=== PATIENT | female | born 1940 | race Caucasian/White ===

== ENCOUNTER 2016-08-30 13:59 | Inpatient (IN) | payer MEDICARE ==
[~2016-08-30] VITALS: Ht 152.4 cm; Wt 45.9 kg
[2016-08-30] MEDS ORDERED: MORPHINE 2 MG/ML 1ML SYRINGE As Ordered ONE ×3 (15:20→20:59)
[2016-08-30] MEDS ORDERED: ONDANSETRON 4MG/2ML VIAL (J2405) As Ordered ONE ×2 (15:20→16:56)
[2016-08-30 15:38] LABS: CALCIUM LEVEL 10.2 MG/DL (8.8-10.2); CREATININE FOR GFR 1.25 MG/DL (0.55-1.02); GLOMERULAR FILTRATION RATE 44.2 (>39); POTASSIUM SERUM 4.6 MEQ/L (3.5-5.1)
[2016-08-30 15:41] LABS: BASO % 0.3 % (0.0-1.0); EOS # 0.1 K/mm3 (0.0-0.50); EOS % 1.1 % (0.0-3.0); LARGE UNSTAINED CELL # 0.1 K/mm3 (0.0-0.4); LARGE UNSTAINED CELL % 1.2 % (0.0-4.0); LYMPH # 1.5 K/mm3 (1.5-4.5); LYMPH % 13.1 % (24.0-44.0); MEAN CORPUSCULAR HEMOGLOBIN 32.1 pg (27.0-33.0); MEAN CORPUSCULAR HGB CONC 34.1 g/dl (32.0-36.5); MEAN CORPUSCULAR VOLUME 94.3 fl (80.0-96.0); MONO # 0.5 K/mm3 (0.0-0.8); MONO % 4.2 % (0.0-5.0); NEUTROPHILS # 9.4 K/mm3 (1.8-7.7); NEUTROPHILS % 80.1 % (36.0-66.0); PLATELET COUNT, AUTOMATED 180 k/mm3 (150-450); RED CELL DISTRIBUTION WIDTH 11.5 % (11.5-14.5); WHITE BLOOD COUNT 11.7 K/mm3 (4.0-10.0)
[2016-08-30 15:42] LABS: ADD MORPHOLOGY? YES
[2016-08-30 16:06] LABS: PLATELET CLUMPS SMALL AMT
--- NOTE | 2016-08-30 16:08 | REP ---
Chest one-view HISTORY: Injury Comparison: 02/14/2009 The lungs are clear. The heart is normal in size. The pulmonary vasculature is normal in appearance. Impression: No acute disease. Signed by Andrew Coleman MD 08/30/2016 03:59 P
--- NOTE | 2016-08-30 16:23 | REP ---
CT HEAD WITHOUT CONTRAST: HISTORY: Injury. Areas of decreased attentuation are present in the periventricular white matter. This represents small vessel ischemic disease. There is no intraparenchymal hemorrhage, mass, or midline shift. The ventricular system and cortical sulci are dilated consistent with minimal volume loss. There is no extracerebral collection. The visualized sinuses are clear. IMPRESSION: 1. Small vessel ischemic disease. 2. Minimal volume loss. Signed by Andrew Coleman MD 08/30/2016 04:40 P
--- NOTE | 2016-08-30 16:24 | REP ---
RIGHT HIP AND PELVIS, THREE VIEWS: HISTORY: Fall. There is a comminuted intertrochanteric fracture of the right femur. There is no dislocation. There is narrowing of the hip joint spaces. IMPRESSION: Comminuted intertrochanteric fracture of the right femur. Signed by Andrew Coleman MD 08/30/2016 04:40 P
--- NOTE | 2016-08-30 16:25 | REP ---
RIGHT FEMUR, TWO VIEWS: The comminuted intertrochanteric fracture is not seen in the present radiographs. There is no fracture of the distal two-thirds of the right femur. IMPRESSION: There is no acute fracture or dislocation. Signed by Andrew Coleman MD 08/30/2016 04:41 P
--- NOTE | 2016-08-30 16:26 | REP ---
RIGHT KNEE, TWO VIEWS: HISTORY: Injury. Limited views of the right knee demonstrate no fracture or dislocation. IMPRESSION: Limited examination demonstrating no fracture or dislocation. Signed by Andrew Coleman MD 08/30/2016 04:40 P
[2016-08-30] MEDS ORDERED: FISH1000 PO (17:19)
[2016-08-30] MEDS ORDERED: VITA100066 PO (17:19)
[2016-08-30] MEDS ORDERED: CALC600T10 PO (17:19)
[2016-08-30] MEDS ORDERED: VITA500T88 PO (17:19)
[2016-08-30] MEDS ORDERED: PANT40TA2 PO (17:19)
[2016-08-30] MEDS ORDERED: MAGN500T2 PO (17:19)
[2016-08-30] MEDS ORDERED: VITMTA PO (17:19)
[2016-08-30] MEDS ORDERED: BIOT10005 PO (17:19)
[2016-08-30 17:20] LABS: INR 0.94
--- NOTE | 2016-08-30 18:36 | CR ---
DATE OF CONSULTATION: 08/30/2016 REASON FOR CONSULTATION: Right intertrochanteric femur fracture. REQUESTING PHYSICIAN: Dr. Brandy Hagen, admitting hospitalist. HISTORY: Patient is a pleasant 75-year-old female presenting to emergency room status post mechanical fall. She sustained a right comminuted intertrochanteric fracture of her femur. Injury sustained when she tripped on her purse strap when getting out of car at gym. Patient complains of significant 9/10 right hip pain. She does have some tinging in her right lower extremity. Otherwise no concerns at this time. PAST MEDICAL HISTORY: 1. Gastroesophageal reflux disease. 2. Osteoporosis. 3. Esophagitis. 4. Diverticulitis. PAST SURGICAL HISTORY: Tonsillectomy. SOCIAL HISTORY: Patient . Lives with . She never smoked. Uses alcohol infrequently. MEDICATIONS: Pantoprazole 20 mg daily. PHYSICAL EXAMINATION: Patient is a well-nourished, well-developed female who appears to be comfortable in the exam room. HEART: Regular rate and rhythm. LUNGS: Clear to auscultation bilaterally. ABDOMEN: Soft, nontender to palpation. MUSCULOSKELETAL: Inspection of the right hip reveals no gross abnormalities. Range of motion of the hip is limited due to pain. Skin of the right leg is normal in color. Warm and dry. The calf is soft and nontender to palpation. Her distal pulses are palpable. Her capillary refill is brisk, and her sensation is intact. LABORATORY DATA: Complete blood count: WBC slightly elevated at 11.7, RBC 4.08, hemoglobin 13.1, hematocrit 38.4, platelets 180. PT 12.7, INR 0.94. Basic metabolic panel: Sodium 140, potassium 4.6, chloride 104, carbon dioxide 27, anion gap 9, BUN slightly elevated at 24, creatinine slightly elevated at 1.25, GFR 44.2, fasting glucose 101, calcium 10.2. Blood type and screen pending. IMAGING: Anterior-posterior (AP) lateral of the right hip shows a comminuted intertrochanteric fracture of the right femur. Right femur comminuted intertrochanteric fracture not seen. There is no acute fracture or dislocation. IMPRESSION: Comminuted intertrochanteric fracture of the right femur. PLAN: Patient did sustain a mechanical fall. Last oral intake was water at 1 p.m. today. Case was discussed with Dr. Geller, and recommendation was to put patient on the operating room (OR) schedule for a long trochanteric fixation nail (TFN). Patient pending admission. Dr. Geller will visit patient to discuss procedure and obtain consent. Mores than 40 minutes invested in this consultation more than 50 % face to face time at bedside. TAVARES
[2016-08-30] MEDS ORDERED: PANTOPRAZOLE 40MG TAB (PROTONIX) PO PRN (18:45)
--- NOTE | 2016-08-30 21:33 | HPE ---
DATE OF ADMISSION: 08/30/2016 PRIMARY CARE PROVIDER: Dr. Loya CHIEF COMPLAINT: Right hip pain. HISTORY OF PRESENT ILLNESS: Ms. Flores is a 75-year-old female with a past medical history of osteoporosis, gastroesophageal reflux disease (GERD), who presented to the emergency department (ED) with right hip pain that started tonight. Earlier she was at the gym working out, doing her free weights and rowing machine, and after finishing the gym she decided to go to the grocery store. As she got out of the car to go into the grocery store, her leg was caught by the strap of her gym bag, and she immediately fell on her right leg, subsequently causing significant pain. No episodes of dizziness, lightheadedness , palpitations, chest pain, shortness of breath prior to the episode. No prior injury to her legs. At baseline she is very active. Is able to go on the elliptical machine for 1 hour. Walks up and down stairs without any shortness of breath, chest pain, or palpitations. Has had surgery in the past with sedation, without any difficulty. In the ED was given morphine 2 mg times two, Zofran 4 mg times two. PAST MEDICAL HISTORY: 1. Gastroesophageal reflux disease (GERD). 2. Osteoporosis. 3. Hiatal hernia. 4. Diverticulitis. PAST SURGICAL HISTORY: 1. Tonsillectomy. 2. Toe surgery. ALLERGIES: No known drug allergies. HOME MEDICATIONS: - vitamin D 1000 units by mouth daily - fish oil 1000 mg by mouth daily - multivitamin - Protonix 40 mg by mouth as needed SOCIAL HISTORY: Patient is a never-smoker. Drinks a glass of wine once a week. No drug use. 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 Lifetime travel includes to [place] and [place]. Currently lives at home with spouse. No pets. No exposure to tuberculosis or asbestos she is aware of. FAMILY HISTORY: Extensive family history of alcoholism. REVIEW OF SYSTEMS: CONSTITUTIONAL: Denies fevers, chills, rigors, weight changes. HEENT: Denies headaches, lightheadedness, dizziness, blurry vision, difficulty with speech and swallow. CARDIOVASCULAR: Denies chest pain, paroxysmal nocturnal dyspnea, pillow orthopnea, lower extremity edema. PULMONARY: Denies shortness of breath, productive cough, hemoptysis. GASTROINTESTINAL: Denies hematochezia, melena, or hematemesis, nausea, vomiting, diarrhea, constipation. GENITOURINARY: No dysuria, frequency or hematuria. MUSCULOSKELETAL: Positive for right pain, as mentioned above. NEUROLOGICAL: No paralysis, paresthesia, headaches. ENDOCRINE: Negative for diabetes, or thyroid disease. LYMPHATICS: No lumps, bumps, or swelling anywhere in neck, axilla, or groin. HEMATOLOGY: No abnormal bleeding or bruising. PHYSICAL EXAMINATION: Blood pressure 162/84, heart rate 80, temperature 98.3, respiration rate 20, pulse oximetry 100% on room air. GENERAL: Patient was lying in bed comfortable. No acute distress. She is alert, awake, oriented times three, pleasant, cooperative. at bedside. Thin appearing. Appears younger than stated age. HEENT: Normocephalic, atraumatic. Moist oral mucosa. Mallampati 2. Extraocular movement intact. Neck supple. Trachea midline. Positive for mild thyromegaly. CHEST: Symmetric chest rise. No accessory muscle use. Breath sounds clear to auscultation bilaterally. HEART: Regular rate and rhythm. S1, S2 present. ABDOMEN: Soft, nontender, nondistended. Bowel sounds present. No guarding. No rebound. EXTREMITIES: No pedal edema. Pedal pulses present bilateral. Sensory intact. Right hip is displaced. Tender to palpation with some guarding. LABORATORY DATA: WBC 11.7, hemoglobin 13.1, hematocrit 38.4, platelets 180, neutrophil 80.1. Sodium 140, potassium 4.6, chloride 104, carbon dioxide 27, BUN 24, creatinine 1.25. Fasting glucose 101, calcium 10.2. PT 12.7, INR 0.94, PTT 26.4. Knee x-ray did not show a fracture or dislocation. Hip x-ray shows comminuted intertrochanteric fracture of right femur. CT head with small-vessel ischemic disease. Minimal volume loss. Chest x-ray: No acute disease. IMPRESSION AND PLAN: Ms. Flores is a 75-year-old female with no cardiac history, who presented to the emergency department (ED) with right leg pain, found to have fracture of right femur. 1. Comminuted intertrochanteric fracture of right femur secondary to mechanical injury. She has no cardiac history. Had anesthesia before without complications. No problems with extubation. Currently not on prednisone or beta la. She is able achieve greater than 4 metabolic equivalent (METs) and is medically optimized for surgery. Benefits of surgery will outweigh risks. Patient is currently nothing by mouth status. 2. Gastroesophageal reflux disease (GERD). Continue home dose proton pump inhibitor (PPI). 3. Osteoporosis. Cause for her current fracture. 4. Deep vein thrombosis (DVT) prophylaxis. Sequential compression devices (SCDs), thromboembolic deterrent stockings (TEDS), pharmacological intervention post surgery per orthopedic team. My preceptor for this patient encounter was Dr. Brandy Hagen. The preceptor was physically present in the building during the encounter and was fully available as needed. All aspects of the patient interview, examination, medical decision making process, and medical care plan development were reviewed and approved by the preceptor. The preceptor is aware and concurs with the plan as stated in the body of this note and will attest to such by his/her co-signature. TAVARES
--- NOTE | 2016-08-30 22:02 | ECGEPIP ---
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
--- NOTE | 2016-08-30 23:38 | EDDOCDS ---
Physician Documentation [facility] Name: Aimee Flores Age: 75 yrs Sex: Female : 1940 Arrival Date: 08/30/2016 Time: 13:59 Bed Admit Hold Private MD: Disposition: 08/30/16 17:03 Hospitalization ordered by Brandy Hagen for Inpatient Admission. Preliminary diagnosis is Intertrochanteric fracture of femur. - Bed requested for 4 [place]. - Status is Inpatient Admission. nn1 - Condition is Stable. - Problem is new. - Symptoms are unchanged. Historical: - Allergies: No known drug Allergies; - Home Meds: 1. pantoprazole 20 mg oral TbEC 1 tab once daily - PMHx: GERD; Osteoporosis; - PSHx: Tonsillectomy; - Social history: No barriers to communication noted, The patient speaks fluent [place], Speaks appropriately for age, Smoking status: Patient states was never smoker of tobacco. - Family history: Not pertinent. - : The pt / caregiver states he / she is not on anticoagulants. Home medication list is obtained from the patient. - Exposure Risk Screening:: None identified. Vital Signs: 08/30 14:37 BP 162 / 84; Pulse 80; Resp 20; Temp 98.3(TE); Pulse Ox 100% on R/A; Pain 9/10; jmb 20:14 BP 116 / 65; Pulse 81; Resp 18; Temp 98.9(O); Pulse Ox 96% on R/A; Pain 5/10; kas2 21:05 BP 136 / 66; Pulse 74; Resp 18; Pulse Ox 100% on R/A; Pain 4/10; kas2 22:25 BP 132 / 64; Pulse 65; Resp 18; Temp 98.0; Pulse Ox 99% ; Pain 2/10; kas2 22:49 BP 112 / 63; Pulse 71; Resp 18; Temp 98.1(O); Pulse Ox 100% ; Pain 2/10; kas2 MDM: 15:05 CT Head Without Contrast Ordered. EDMS 15:06 Hip,AP,LAT to include Pelvis Ordered. EDMS 15:06 Knee, Complete Ordered. EDMS 15:06 CBC with Diff Ordered. EDMS 15:06 BMP Ordered. EDMS 15:13 IV Saline Lock ordered. ml 15:14 Ondansetron 4 mg IVP once ordered. jo4 15:14 Rhythm Strip to chart ordered. jo4 15:15 morphine 2 mg IVP once ordered. jo4 15:18 Femur Ordered. EDMS 15:32 Chest, 1 View Ordered. EDMS 15:41 BMP Reviewed. jo4 15:42 CBC with Diff Reviewed. jo4 15:43 RBC MORPH PROF NO CHARGE Ordered. EDMS 15:46 CBC with Diff Reviewed. jo4 16:26 Financial registration complete. gjb 16:30 [facility] Payment Agreement was scanned into [employer] and attached to record. gjb 16:50 morphine 2 mg IVP once ordered. jo4 16:50 Ondansetron 4 mg IVP once ordered. jo4 16:51 PT/INR Ordered. EDMS 16:51 PTT Ordered. EDMS 16:51 Type & Screen Ordered. EDMS 16:55 BED REQUEST+ADM ordered. EDMS 17:55 PTT Reviewed. jo4 18:02 CBC with Diff Reviewed. jo4 18:03 ECG WITH READING ER PHYS+CARDIAG ordered. EDMS 18:35 NPO DIET ordered. EDMS 18:43 Type & Screen Reviewed. jo4 18:44 RBC MORPH PROF NO CHARGE Reviewed. jo4 18:44 PT/INR Reviewed. jo4 19:17 Admission / Observation Status ordered. EDMS 20:59 morphine 2 mg IVP once ordered. kas2 22:24 Written Provider Order was scanned into [employer] and attached to record. tmm1 Administered Medications: 15:24 Drug: Ondansetron 4 mg [ondansetron HCl 2 mg/mL intravenous solution (2 mL)] Route: b IVP; Site: right antecubital; 15:24 Drug: morphine 2 mg [morphine 2 mg/mL intravenous cartridge (1 mL)] Route: IVP; Site: b right antecubital; 17:08 Drug: morphine 2 mg [morphine 2 mg/mL intravenous cartridge (1 mL)] Route: IVP; Site: b right antecubital; 17:08 Drug: Ondansetron 4 mg [ondansetron HCl 2 mg/mL intravenous solution (2 mL)] Route: b IVP; Site: right antecubital; 20:58 CANCELLED (wrong amount ordered): morphine 1 mg IVP once kas2 21:05 Drug: morphine 2 mg [morphine 2 mg/mL intravenous cartridge (1 mL)] Route: IVP; Site: [facility] right antecubital; 22:25 Follow up: BP 132 / 64; Pulse 65 bpm; Resp 18 bpm; Temp 98.0; Pulse Ox 99% ; Pain 2/10 [facility] Adult Signatures: Dispatcher [employer] EDMS Yannick Magdaleno MD MD ml Sherrill, Hannah, RN RN hs1 McLear, Whit, ALARM ADJUSTER ALARM ADJUSTER tmm1 Kike Thakur RN RN jmb Nunez, Nikkole, RN RN nn1 Purnima Ponce Lita Rousseau DO DO jo4 Kim Grossman RN RN [facility] Dick Thomas RN RN The chart was reviewed and I authenticate all verbal orders and agree with the evaluation and treatment provided.Corrections: (The following items were deleted from the chart) 14:34 14:13 Home Meds: Omeprazole Oral once daily; hs1 liz 17:10 15:14 Watershed Manager ordered. jo4 jo4 20:58 20:58 morphine 1 mg IVP [address] [facility] Attachments: 16:30 [facility] Payment Agreement [facility] 22:24 Written Provider Order tmm1 MTDD
--- NOTE | 2016-08-30 23:38 | EDDOCDS ---
Nurse's Notes [facility] Name: Bi Flores Age: 75 yrs Sex: Female : 1940 Arrival Date: 08/30/2016 Time: 13:59 Bed Admit Hold Private MD: Diagnosis: Intertrochanteric fracture of femur Presentation: 08/30 14:08 Presenting complaint: EMS states: getting out of car and was tripped up by purse strap. hs1 Patient has osteopetrosis and deformity noted to right leg - positive rotation. Adult Sepsis Screening: The patient does not have new or worsening altered mentation. Patient's respiratory rate is less than 22. Systolic blood pressure is greater than 100. Patient has a qSOFA score of 0- Negative Sepsis Screen. Suicide/Homicide risk assessment- the patient denies having any suicidal and/or homicidal ideations and does not present with any other emotional, behavioral or mental health complaints. 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 Transition of care: patient was not received from another setting of care. Care prior to arrival: See EMS report. Medications administered prior to arrival: morphine 5 mg x2. Saline lock initiated. 14:08 Acuity: ELOY Level 3 hs1 14:08 Method Of Arrival: Ambulance hs1 Triage Assessment: 14:13 General: Appears uncomfortable, Behavior is appropriate for age, cooperative. Pain: hs1 Location: right iliac crest, right hip and right leg. Neurological: Level of Consciousness is awake, alert, obeys commands. Musculoskeletal: Range of motion limited in right hip other noted to right hip. Historical: - Allergies: No known drug Allergies; - Home Meds: 1. pantoprazole 20 mg oral TbEC 1 tab once daily - PMHx: GERD; Osteoporosis; - PSHx: Tonsillectomy; - Social history: No barriers to communication noted, The patient speaks fluent Occitan, Speaks appropriately for age, Smoking status: Patient states was never smoker of tobacco. - Family history: Not pertinent. - : The pt / caregiver states he / she is not on anticoagulants. Home medication list is obtained from the patient. - Exposure Risk Screening:: None identified. Screenin:29 Screening information is obtained from the patient. Fall risk: At risk due to jmb immobility, prior history of falls. Assistance ADL's: requires no assistance with activities of daily living. Abuse/DV Screen: The patient / caregiver reports he/she is: not in a situation that causes fear, pain or injury. Nutritional screening: No deficits noted. home support is adequate. 23:36 Advance Directives: Currently, there is no health care proxy. nn1 Assessment: 14:29 General: Appears uncomfortable, Behavior is appropriate for age, cooperative. Pain: jmb Location: right leg and pelvis and right hip and right iliac crest Pain currently is 9 out of 10 on a pain scale. Neurological: Level of Consciousness is awake, alert, obeys commands, Oriented to person, place, time, Distribution Clerk are equal bilaterally Speech is normal, Facial symmetry appears normal, Facial symmetry: tongue is midline. Cardiovascular: Capillary refill < 3 seconds Heart tones present Pulses are all present. Rhythm is regular. Respiratory: Airway is patent Respiratory effort is even, unlabored, Respiratory pattern is regular, symmetrical, Breath sounds are clear bilaterally. GI: Abdomen is non- distended Bowel sounds present X 4 quads. Abd is soft and non tender X 4 quads. Derm: Skin is pink, warm & dry. Musculoskeletal: Range of motion limited in right hip. 14:57 General: Appears in no apparent distress, Behavior is appropriate for age, cooperative, jmb Patient laying on stretcher, right leg externally rotated and uncomfortable with movement. Right leg shorter than left. NO voiced complaints at this time. . Neurological: Level of Consciousness is awake, alert, obeys commands, Oriented to person, place, time. Respiratory: Airway is patent Respiratory effort is even, unlabored, Respiratory pattern is regular, symmetrical. 16:32 General: Appears in no apparent distress, comfortable, Behavior is appropriate for age, jmb cooperative, Patient laying on stretcher, at bedside. NO voiced complaints at this time. Dr. Jones in with patient. . Neurological: Level of Consciousness is awake, alert, obeys commands, Oriented to person, place, time. Respiratory: Airway is patent Respiratory effort is even, unlabored, Respiratory pattern is regular, symmetrical. 17:09 General: Appears in no apparent distress, comfortable, Behavior is appropriate for age, jmb cooperative. Neurological: Level of Consciousness is awake, alert, obeys commands, Oriented to person, place, time. Respiratory: Airway is patent Respiratory effort is even, unlabored, Respiratory pattern is regular, symmetrical. 17:40 General: Appears in no apparent distress, comfortable, Behavior is appropriate for age, jmb cooperative, Patient laying on stretcher, appears comfortable. NO voiced complaints at this time. . Neurological: Level of Consciousness is awake, alert, obeys commands, Oriented to person, place, time. Respiratory: Airway is patent Respiratory effort is even, unlabored, Respiratory pattern is regular, symmetrical. 18:44 General: Appears in no apparent distress, comfortable, Behavior is appropriate for age, jmb cooperative, Patient laying on stretcher, at bedside. NO voiced complaints at this time. . Neurological: Level of Consciousness is awake, alert, obeys commands, Oriented to person, place, time. Respiratory: Airway is patent Respiratory effort is even, unlabored, Respiratory pattern is regular, symmetrical. 19:00 General: Verbal report given by Carlito Brar RN. Assumed care of patient at this time.. kas2 19:52 General: Appears in no apparent distress, uncomfortable, well nourished, well groomed, kas2 Behavior is appropriate for age, cooperative. Pain: Location: right leg and pelvis and right hip and right iliac crest Pain currently is 5 out of 10 on a pain scale. Neurological: Level of Consciousness is awake, alert, obeys commands, Oriented to person, place, time. Cardiovascular: Capillary refill < 3 seconds Heart tones S1 S2 present Rhythm is sinus rhythm. Respiratory: Airway is patent Respiratory effort is even, unlabored, Respiratory pattern is regular, symmetrical, Breath sounds are clear bilaterally. Derm: Skin is intact, is healthy with good turgor, Skin is dry, Skin is pink, warm & dry. Skin temperature is warm. Musculoskeletal: Circulation, motion, and sensation intact Capillary refill < 3 seconds Range of motion limited in right leg and pelvis and right hip and right iliac crest. 21:05 General: Patient laying in bed with at bedside. Patient complaining of R hip kas2 pain 4/. VSS. Meds given for pain. No distress noted. Airway patent and respiratory effort even and unlabored. Call adhikari within reach. Will continue to monitor.. 22:23 General: Appears in no apparent distress, comfortable, well nourished, well groomed, kas2 Behavior is appropriate for age, cooperative. Pain: Location: right leg and pelvis and right hip and right iliac crest Pain currently is 2 out of 10 on a pain scale. Neurological: Level of Consciousness is awake, alert, Oriented to person, place, time. Respiratory: Airway is patent Respiratory effort is even, unlabored, Respiratory pattern is regular, symmetrical. Derm: Skin is intact, Skin is dry, Skin is pink, warm & dry. Skin temperature is warm. Musculoskeletal: Circulation, motion, and sensation intact Capillary refill < 3 seconds Range of motion limited in right leg and pelvis and right hip and right iliac crest. 23:35 Reassessment: Patient appears in no apparent distress at this time. Respiratory: Airway nn1 is patent Respiratory effort is even, unlabored, Respiratory pattern is regular, symmetrical. Derm: Skin is pink, warm & dry. Vital Signs: 14:37 BP 162 / 84; Pulse 80; Resp 20; Temp 98.3(TE); Pulse Ox 100% on R/A; Pain 9/10; jmb 20:14 BP 116 / 65; Pulse 81; Resp 18; Temp 98.9(O); Pulse Ox 96% on R/A; Pain 5/10; kas2 21:05 BP 136 / 66; Pulse 74; Resp 18; Pulse Ox 100% on R/A; Pain 4/10; kas2 22:25 BP 132 / 64; Pulse 65; Resp 18; Temp 98.0; Pulse Ox 99% ; Pain 2/10; kas2 22:49 BP 112 / 63; Pulse 71; Resp 18; Temp 98.1(O); Pulse Ox 100% ; Pain 2/10; kas2 Vitals: 14:37 Log In Time N/A - ambulance arrival. [facility] ED Course: 14:00 Patient visited by Lizzie Shirley, Hat Copyist. deg 14:00 Patient moved to Waiting deg 14:02 Patient moved to [facility] 14:10 Triage Initiated hs1 14:24 [facility] jo4 14:24 Yannick Magdaleno MD is Attending Physician. jo4 14:28 Patient visited by Lita Rousseau DO. jo4 14:28 Patient visited by Lita Rousseau DO. jo4 14:29 The patient / caregiver is instructed regarding the plan of care and ED course. b 14:29 Maintain field IV. Dressing intact. Good blood return noted. Site clean & dry. Gauge & jmb site: 18 gauge left antecubital. 14:31 Patient visited by Kike Thakur RN. mary 14:58 Patient visited by Kike Thakur RN. jmb 15:19 BMP Sent. jmb 15:19 CBC with Diff Sent. jmb 16:30 [facility] Payment Agreement was scanned into [employer] and attached to record. gjb 16:33 Patient visited by Kike Thakur RN. jmb 16:35 Chest, 1 View Returned. EDMS 16:35 CT Head Without Contrast Returned. EDMS 16:35 Hip,AP,LAT to include Pelvis Returned. EDMS 16:35 Femur Returned. EDMS 16:35 Knee, Complete Returned. EDMS 17:03 Brandy Hagen is Hospitalizing Provider. jo4 17:08 Type & Screen Sent. jmb 17:08 PTT Sent. jmb 17:08 PT/INR Sent. jmb 17:09 Patient visited by Kike Thakur RN. jmb 17:40 Patient visited by Kike Thakur RN. jmb 18:02 Patient moved to Admit Hold js13 18:44 Patient visited by Kike Thakur RN. jmb 18:57 Patient visited by Betzaida Clemente PCA. ct3 18:57 Kim Grossman RN is Primary Nurse. kas2 18:57 EKG done. (by ED staff). Reviewed by Lita Rousseau DO. ct3 19:00 Patient visited by Kim Grossman RN. kas2 19:54 Patient visited by Kim Grossman RN. kas2 20:13 Patient visited by Kim Grossman RN. kas2 20:44 Patient visited by Kim Grossman RN. kas2 21:07 Patient visited by Kim Grossman RN. kas2 22:08 EKG-ADULT Returned. EDMS 22:24 Patient visited by Kim Grossman RN. kas2 22:24 Written Provider Order was scanned into [employer] and attached to record. tmm1 22:25 Patient visited by Kim Grossman RN. kas2 22:49 No procedures done that require assistance. kas2 22:55 Patient visited by Kim Grossman RN. kas2 Administered Medications: 15:24 Drug: Ondansetron 4 mg [ondansetron HCl 2 mg/mL intravenous solution (2 mL)] Route: jmb IVP; Site: right antecubital; 15:24 Drug: morphine 2 mg [morphine 2 mg/mL intravenous cartridge (1 mL)] Route: IVP; Site: b right antecubital; 17:08 Drug: morphine 2 mg [morphine 2 mg/mL intravenous cartridge (1 mL)] Route: IVP; Site: [facility] right antecubital; 17:08 Drug: Ondansetron 4 mg [ondansetron HCl 2 mg/mL intravenous solution (2 mL)] Route: jmb IVP; Site: right antecubital; 20:58 CANCELLED (wrong amount ordered): morphine 1 mg IVP once [facility] 21:05 Drug: morphine 2 mg [morphine 2 mg/mL intravenous cartridge (1 mL)] Route: IVP; Site: [facility] right antecubital; 22:25 Follow up: BP 132 / 64; Pulse 65 bpm; Resp 18 bpm; Temp 98.0; Pulse Ox 99% ; Pain 2/10 [facility] Adult Order Results: Lab Order: CBC with Diff; SPEC'M 08/30/16 15:18 Test: WHITE BLOOD COUNT; Value: 11.7; Range: 4.0-10.0; Abnormal: Above high normal; Units: K/mm3; Status: F Test: RED BLOOD COUNT; Value: 4.08; Range: 4.00-5.40; Units: M/mm3; Status: F Test: HEMOGLOBIN; Value: 13.1; Range: 12.0-16.0; Units: g/dl; Status: F Test: HEMATOCRIT; Value: 38.4; Range: 36.0-47.0; Units: %; Status: F Test: MEAN CORPUSCULAR VOLUME; Value: 94.3; Range: 80.0-96.0; Units: fl; Status: F Test: MEAN CORPUSCULAR HEMOGLOBIN; Value: 32.1; Range: 27.0-33.0; Units: pg; Status: F Test: MEAN CORPUSCULAR HGB CONC; Value: 34.1; Range: 32.0-36.5; Units: g/dl; Status: F Test: RED CELL DISTRIBUTION WIDTH; Value: 11.5; Range: 11.5-14.5; Units: %; Status: F Test: PLATELET COUNT, AUTOMATED; Value: 180; Range: 150-450; Units: k/mm3; Status: F Test: NEUTROPHILS %; Value: 80.1; Range: 36.0-66.0; Abnormal: Above high normal; Units: %; Status: F Test: LYMPH %; Value: 13.1; Range: 24.0-44.0; Abnormal: Below low normal; Units: %; Status: F Test: MONO %; Value: 4.2; Range: 0.0-5.0; Units: %; Status: F Test: EOS %; Value: 1.1; Range: 0.0-3.0; Units: %; Status: F Test: BASO %; Value: 0.3; Range: 0.0-1.0; Units: %; Status: F Test: LARGE UNSTAINED CELL %; Value: 1.2; Range: 0.0-4.0; Units: %; Status: F Test: NEUTROPHILS #; Value: 9.4; Range: 1.8-7.7; Abnormal: Above high normal; Units: K/mm3; Status: F Test: LYMPH #; Value: 1.5; Range: 1.5-4.5; Units: K/mm3; Status: F Test: MONO #; Value: 0.5; Range: 0.0-0.8; Units: K/mm3; Status: F Test: EOS #; Value: 0.1; Range: 0.0-0.50; Units: K/mm3; Status: F Test: BASO #; Value: 0.0; Range: 0.0-0.2; Units: K/mm3; Status: F Test: LARGE UNSTAINED CELL #; Value: 0.1; Range: 0.0-0.4; Units: K/mm3; Status: F Lab Order: [facility]; SPEC'M 08/30/16 15:18 Test: GLUCOSE, FASTING; Value: 101; Range: 83-110; Units: MG/DL; Status: F Test: BLOOD UREA NITROGEN; Value: 24; Range: 7-18; Abnormal: Above high normal; Units: MG/DL; Status: F Test: CREATININE FOR GFR; Value: 1.25; Range: 0.55-1.02; Abnormal: Above high normal; Units: MG/DL; Status: F Test: GLOMERULAR FILTRATION RATE; Value: 44.2; Range: >39; Status: F Test: SODIUM LEVEL; Value: 140; Range: 136-145; Units: MEQ/L; Status: F Test: POTASSIUM SERUM; Value: 4.6; Range: 3.5-5.1; Units: MEQ/L; Status: F Test: CHLORIDE LEVEL; Value: 104; Range: 98-107; Units: MEQ/L; Status: F Test: CARBON DIOXIDE LEVEL; Value: 27; Range: 21-32; Units: MEQ/L; Status: F Test: ANION GAP; Value: 9; Range: 8-16; Units: MEQ/L; Status: F Test: CALCIUM LEVEL; Value: 10.2; Range: 8.8-10.2; Units: MG/DL; Status: F Test Note: ; Units are mL/min/1.73 m2 Chronic Kidney Disease Staging per NKF: Stage I & II GFR >=60 Normal to Mildly Decreased Stage III GFR 30-59 Moderately Decreased Stage IV GFR 15-29 Severely Decreased Stage V GFR <15 Very Little GFR Left ESRD GFR <15 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 Lab Order: RBC MORPH PROF NO CHARGE; SPEC'M 08/30/16 15:18 Test: PLATELET ESTIMATE; Range: NORMAL; Status: I Test: RBC MORPHOLOGY; Value: NORMAL; Status: F Test: PLATELET CLUMPS; Value: SMALL AMT; Status: F Test: PLATELET ESTIMATE; Value: NORMAL; Range: NORMAL; Status: F Lab Order: PT/INR; SPEC'M 08/30/16 17:06 Test: PROTHROMBIN TIME; Value: 12.7; Range: 12.3-14.5; Units: SECONDS; Status: F Test: INR; Value: 0.94; Status: F Test Note: ; THERAPUTIC HUMAN INR VALUES INDICATIONS NORMAL RANGES PROPHYLAXIS/TREATMENT OF: VENOUS THROMBOSIS 2.0-3.0 PULMONARY EMBOLISM 2.0-3.0 PREVENTION OF SYSTEMIC EMBOLISM FROM: TISSUE HEART VALVES 2.0-3.0 ACUTE MYOCARDIAL INFARCTION 2.0-3.0 VALVULAR HEART DISEASE 2.0-3.0 ATRIAL FIBRILLATION 2.0-3.0 MECHANICAL VALVES(HIGH RISK) 2.5-3.5 RECURRENT MYOCARDIAL INFARCTION 2.5-3.5 Lab Order: PTT; SPEC'Olya 08/30/16 17:06 Test: PARTIAL THROMBOPLASTIN TIME; Value: 26.4; Range: 26.6-37.1; Abnormal: Below low normal; Units: SECONDS; Status: F Lab Order: Type & Screen; AGUSTIN 08/30/16 17:06 Test: BLOOD TYPE; Value: B NEG; Status: F Test: AB SCREEN (INDIRECT RADHA)GEL; Value: NEGATIVE; Status: F Radiology Order: CT Head Without Contrast Test: CT Head Without Contrast REASON FOR EXAMINATION: Mechanical fall; hit head; CT HEAD WITHOUT CONTRAST:; ; HISTORY: Injury.; ; Areas of decreased attentuation are present in the periventricular white matter.; This represents small vessel ischemic disease. There is no intraparenchymal; hemorrhage, mass, or midline shift. The ventricular system and cortical sulci are; dilated consistent with minimal volume loss. There is no extracerebral; collection. The visualized sinuses are clear.; ; IMPRESSION:; ; 1. Small vessel ischemic disease.; ; 2. Minimal volume loss.; ; ; Signed by; Andrew Coleman MD 08/30/2016 04:40 P; Radiology Order: Hip,AP,LAT to include Pelvis Test: Hip,AP,LAT to include Pelvis REASON FOR EXAMINATION: Mechanical fall; hip pain; RIGHT HIP AND PELVIS, THREE VIEWS:; ; HISTORY: Fall.; ; There is a comminuted intertrochanteric fracture of the right femur. There is no; dislocation. There is narrowing of the hip joint spaces.; ; IMPRESSION:; ; Comminuted intertrochanteric fracture of the right femur.; ; ; Signed by; Andrew Coleman MD 08/30/2016 04:40 P; Radiology Order: Knee, Complete Test: Knee, Complete REASON FOR EXAMINATION: Mechanical fall; knee pain; RIGHT KNEE, TWO VIEWS:; ; HISTORY: Injury.; ; Limited views of the right knee demonstrate no fracture or dislocation.; ; IMPRESSION:; ; Limited examination demonstrating no fracture or dislocation.; ; ; Signed by; Andrew Coleman MD 08/30/2016 04:40 P; Radiology Order: Femur Test: Femur REASON FOR EXAMINATION: Mechanical fall; hip and knee pain; RIGHT FEMUR, TWO VIEWS:; ; The comminuted intertrochanteric fracture is not seen in the present; radiographs. There is no fracture of the distal two-thirds of the right femur.; ; IMPRESSION:; ; There is no acute fracture or dislocation.; ; ; Signed by; Andrew Coleman MD 08/30/2016 04:41 P; Radiology Order: Chest, 1 View Test: Chest, 1 View REASON FOR EXAMINATION: Mechanical fall; Chest one-view; ; HISTORY: Injury; ; Comparison: 02/14/2009; ; The lungs are clear. The heart is normal in size. The pulmonary vasculature is; normal in appearance.; ; Impression: No acute disease.; ; ; Signed by; Andrew Coleman MD 08/30/2016 03:59 P; Radiology Order: EKG-ADULT Test: EKG-ADULT REASON FOR EXAMINATION: Mechanical fall; Stationary ECG Study; [facility] - ED; ; Test Date: 2016-08-30; Pat Name: BI FLORES Department:; Room: -; Gender: F Stoner Hand: ct; : 1940 Requested By: LITA DIXON; Order Number: [id number] Reading MD: Wilfrido Wade; Measurements; Intervals [place]; Rate: 75 P: 6; DC: 156 QRS: 10; QRSD: 88 T: 7; QT: 398; QTc: 446; Interpretive Statements; SINUS RHYTHM; ; Electronically Signed On 08-30-2016 22:02:33 EST by Wilfrido Wade; Outcome: 17:03 Decision to Hospitalize by Provider. jo4 22:47 Discharge Assessment: patient administered narcotics - yes. Patient was admitted to the [address] or transferred to another facility. The following High Risk Discharge criteria are identified: None. Admitted to Med/Surg accompanied by tech, via stretcher, with chart. Condition: good Condition: stable Condition: improved. CT Study completed. Property :Personal belongings accompany Pt. 23:37 Patient left the ED. nn1 Signatures: Dispatcher [employer] EDMS Shelly Orosco, RN RN Lizzie Wheeler, Hat Copyist Unit deg Thelma Sheriff RN RN hs1 Betzaida Clemente, INTERLOCKER INTERLOCKER ct3 Pricilla LeoRN RN js13 McLear, Whit, INTERLOCKER INTERLOCKER tmm1 Kike Thakur,CARYN RN jmb Alan Taylor RN RN nn1 Purnima Ponce Jane, DO DO jo4 Smith, Kim, RN RN kas2 Corrections: (The following items were deleted from the chart) 14:34 14:13 Home Meds: Omeprazole Oral once daily; hs1 mary MTDD
[2016-08-31] MEDS: NS 1,000 ML IV SCH ×2 (01:02→13:15)
[2016-08-31] MEDS: MORPHINE 2 MG/ML 1ML SYRINGE IV PRN ×4 (01:04→15:03)
[2016-08-31 06:00] VITALS: BP 107/58
[2016-08-31 07:27] LABS: RED CELL DISTRIBUTION WIDTH 11.7 % (11.5-14.5)
[2016-08-31 08:03] LABS: CALCIUM LEVEL 8.4 MG/DL (8.8-10.2); CREATININE FOR GFR 1.17 MG/DL (0.55-1.02); GLOMERULAR FILTRATION RATE 47.7 (>39)
[2016-08-31] MEDS ORDERED: VITAMIN D 1,000 INTERNATIONAL UNITS TABLET PO SCH (09:00)
[2016-08-31] MEDS ORDERED: SENOKOT S TAB PO SCH (09:00)
--- NOTE | 2016-08-31 09:52 | IPN ---
DATE OF SERVICE: 08/31/2016 A 75-year-old female seen at bedside. Resting comfortably. She denies any chest pain, nausea, or vomiting. No shortness of breath. She does, however, state that she is hungry, so she is nothing by mouth, anticipating surgery later this afternoon. She does have intravenous (IV) fluid normal saline running at 75 mL an hour, and she is making good urine. OBJECTIVE Temperature is 98.1, pulse 87, respiratory rate is 19, blood pressure (BP) 107/58, SpO2 is 96% on room air. Urine output since midnight is 500 mL. General: The patient appears to be in no acute distress. HEENT: Unremarkable. Lungs: Clear. Heart: Regular rate and rhythm. Abdomen: Soft. Extremities: The right lower extremity is shortened and externally rotated. Otherwise, pulses are equal. Sensation is intact. LABORATORIES: White count is 10, hemoglobin 11.1, platelets 174,000. Sodium 142, potassium 4.0, chloride 107, bicarbonate 25, anion gap 10, BUN 21, creatinine 1.17, glucose is 98. INR is 0.94. ASSESSMENT AND PLAN: 1. Comminuted intratrochanteric fracture of the right femur secondary to mechanical fall. She has been medically optimized for surgery. She continues nothing by mouth. Anticipate surgery to be later this afternoon. Pain control, anticoagulation, and physical therapy will be at the discretion of orthopedics. 2. Gastroesophageal reflux disease (GERD). Continue with proton pump inhibitor (PPI). 3. Osteoporosis. Continue with vitamin D supplementation. She may need to be considered for bisphosphonate. 4. History of diverticulosis. No current issues. 5. Deep venous thrombosis (DVT) prophylaxis. Currently, with thromboembolic deterrents (TEDs) and sequential compression devices (SCDs). Will be further modified per orthopedics. DISPOSITION: Anticipate her to be here greater than two midnights and will need some further rehabilitation services.
[2016-08-31 14:00] VITALS: BP 128/63
[2016-08-31] MEDS ORDERED: ceFAZolin 1GM INJ (J0690) As Ordered ONE (14:46)
[2016-08-31] MEDS ORDERED: BUPIVACAINE HCL 0.25% 30 ML VIAL As Ordered ONE (14:46)
[2016-08-31] MEDS ORDERED: MORPHINE 2 MG/ML 1ML SYRINGE IV ONE (16:00)
[2016-08-31] MEDS ORDERED: ceFAZolin 2 GM/D5W 50 ML IV BAG (J0690) As Ordered ONE (18:05)
[2016-08-31] MEDS ORDERED: KETAMINE HCL 200 MG/20 ML VIAL As Ordered ONE (18:12)
[2016-08-31] MEDS ORDERED: fentaNYL 100 MCG/2 ML INJECTION (J3010) As Ordered ONE ×2 (18:12→22:10)
[2016-08-31] MEDS ORDERED: MIDAZOLAM INJ 2 MG/2 ML VIAL (J2250) As Ordered ONE (18:12)
[2016-08-31] MEDS ORDERED: BUPIVACAINE/EPIN 0.25% 30 ML VIAL As Ordered ONE (18:22)
[2016-08-31] MEDS ORDERED: LIDOCAINE 2% INJ 100 MG/5 ML SDV (FOR ANES.) As Ordered ONE (18:25)
[2016-08-31] MEDS ORDERED: PROPOFOL 200 MG/20 ML VIAL As Ordered ONE ×2 (18:25)
[2016-08-31] MEDS: BUPIVACAINE/EPIN 0.5% 30 ML VIAL XX ONE ×2 (18:49→18:53)
[2016-08-31] MEDS ORDERED: ceFAZolin 1GM INJ (J0690) IR ONE (18:54)
[2016-08-31] MEDS ORDERED: PHENYLEPHRINE INJ 10MG/ML VIAL (J2370) As Ordered ONE (19:54)
[2016-08-31] MEDS ORDERED: PHENYLephrine HCL 500 MCG/5 ML (100MCG/ML) SYRINGE (J2370) As Ordered ONE ×2 (19:54)
[2016-08-31] MEDS: SENOKOT S TAB PO SCH (21:00)
[2016-08-31] MEDS ORDERED: ONDANSETRON 4MG/2ML VIAL (J2405) As Ordered ONE (21:08)
[2016-08-31] MEDS ORDERED: ONDANSETRON 4MG/2ML VIAL (J2405) IV PRN (21:45)
[2016-08-31] MEDS ORDERED: METOCLOPRAMIDE INJ 10MG/2ML VIAL (J2765) IV PRN (21:45)
[2016-08-31] MEDS ORDERED: fentaNYL 100 MCG/2 ML INJECTION (J3010) IV PRN (21:45)
[2016-08-31] MEDS ORDERED: LR 1,000 ML IV SCH (21:45)
[2016-08-31] MEDS ORDERED: METOCLOPRAMIDE INJ 10MG/2ML VIAL (J2765) As Ordered ONE (21:46)
[2016-08-31] MEDS ORDERED: PROMETHAZINE INJ 25 MG/ML VIAL (J2550) IV PRN (22:15)
[2016-08-31] MEDS ORDERED: PERCOCET 5MG/325MG TAB PO PRN ×2 (22:15)
[2016-08-31] MEDS ORDERED: HYDROmorphone HCL 1 MG/ML SYRINGE (J1170) IV PRN ×2 (22:30)
[2016-08-31] MEDS ORDERED: WARFARIN SOD 2.5 MG TAB PO ONE (23:00)
[2016-08-31 23:11] VITALS: BP 109/54
[2016-09-01] MEDS: DOCUSATE SODIUM 100 MG CAP PO SCH ×2 (00:22→08:35)
[2016-09-01] MEDS ORDERED: PANTOPRAZOLE 40MG TAB (PROTONIX) PO PRN (01:00)
[2016-09-01] MEDS: ceFAZolin SOD 1 GM in D5W MINI-BAG PLUS 50 ML IV SCH ×2 (01:58→08:35)
[2016-09-01 06:13] VITALS: BP 127/61
[2016-09-01 07:25] LABS: INR 1.24
[2016-09-01 07:28] LABS: MEAN CORPUSCULAR HEMOGLOBIN 32.4 pg (27.0-33.0); MEAN CORPUSCULAR HGB CONC 34.2 g/dl (32.0-36.5); MEAN CORPUSCULAR VOLUME 94.7 fl (80.0-96.0); RED CELL DISTRIBUTION WIDTH 11.6 % (11.5-14.5); WHITE BLOOD COUNT 10.5 K/mm3 (4.0-10.0)
[2016-09-01 07:43] LABS: ANION GAP 10 MEQ/L (8-16); BLOOD UREA NITROGEN 14 MG/DL (7-18); CALCIUM LEVEL 7.4 MG/DL (8.8-10.2); CARBON DIOXIDE LEVEL 24 MEQ/L (21-32); CHLORIDE LEVEL 107 MEQ/L (98-107); CREATININE FOR GFR 0.87 MG/DL (0.55-1.02); GLOMERULAR FILTRATION RATE > 60.0 (>39); GLUCOSE, FASTING 94 MG/DL (83-110); POTASSIUM SERUM 3.8 MEQ/L (3.5-5.1); SODIUM LEVEL 141 MEQ/L (136-145)
--- NOTE | 2016-09-01 08:27 | REP ---
RIGHT FEMUR: Partial study. Three views. HISTORY: Fracture fixation. 3 minutes and 34 seconds of fluoroscopy time is reported. FINDINGS: A sequence of three fluoroscopically obtained intraoperative spot films of the proximal distal femur document femoral neck screw and intramedullary oli fixation of the subtrochanteric femur fracture. Signed by Chetan Coronado MD 09/01/2016 09:40 A
[2016-09-01] MEDS: SENOKOT S TAB PO SCH (08:36)
[2016-09-01] MEDS ORDERED: VITAMIN D 1,000 INTERNATIONAL UNITS TABLET PO SCH (09:00)
[2016-09-01] MEDS ORDERED: MIRALAX *UNIT DOSE* 17GM PACKET PO SCH (09:00)
[2016-09-01 14:00] VITALS: BP 103/52
[2016-09-01] MEDS ORDERED: COUM1TAB17 PO (15:32)
[2016-09-01] MEDS ORDERED: COLA100C PO (15:32)
[2016-09-01] MEDS ORDERED: PERCOCET PO (15:32)
[2016-09-01] MEDS ORDERED: WARFARIN SOD 5 MG TAB PO ONE (17:00)
--- NOTE | 2016-09-02 00:39 | EDDOCDS ---
Physician Documentation [facility] Name: Aimee Flores Age: 75 yrs Sex: Female : 1940 Arrival Date: 08/30/2016 Time: 13:59 Bed Admit Hold Private MD: Disposition: 08/30/16 17:03 Hospitalization ordered by Brandy Hagen for Inpatient Admission. Preliminary diagnosis is Intertrochanteric fracture of femur. - Bed requested for 4 Lynn. - Status is Inpatient Admission. nn1 - Condition is Stable. - Problem is new. - Symptoms are unchanged. Historical: - Allergies: No known drug Allergies; - Home Meds: 1. pantoprazole 20 mg oral TbEC 1 tab once daily - PMHx: GERD; Osteoporosis; - PSHx: Tonsillectomy; - Social history: No barriers to communication noted, The patient speaks fluent [place], Speaks appropriately for age, Smoking status: Patient states was never smoker of tobacco. - Family history: Not pertinent. - : The pt / caregiver states he / she is not on anticoagulants. Home medication list is obtained from the patient. - Exposure Risk Screening:: None identified. Vital Signs: 08/30 14:37 BP 162 / 84; Pulse 80; Resp 20; Temp 98.3(TE); Pulse Ox 100% on R/A; Pain 9/10; jmb 20:14 BP 116 / 65; Pulse 81; Resp 18; Temp 98.9(O); Pulse Ox 96% on R/A; Pain 5/10; kas2 21:05 BP 136 / 66; Pulse 74; Resp 18; Pulse Ox 100% on R/A; Pain 4/10; kas2 22:25 BP 132 / 64; Pulse 65; Resp 18; Temp 98.0; Pulse Ox 99% ; Pain 2/10; kas2 22:49 BP 112 / 63; Pulse 71; Resp 18; Temp 98.1(O); Pulse Ox 100% ; Pain 2/10; kas2 MDM: 15:05 CT Head Without Contrast Ordered. EDMS 15:06 Hip,AP,LAT to include Pelvis Ordered. EDMS 15:06 Knee, Complete Ordered. EDMS 15:06 CBC with Diff Ordered. EDMS 15:06 BMP Ordered. EDMS 15:13 IV Saline Lock ordered. ml 15:14 Ondansetron 4 mg IVP once ordered. jo4 15:14 Rhythm Strip to chart ordered. jo4 15:15 morphine 2 mg IVP once ordered. jo4 15:18 Femur Ordered. EDMS 15:32 Chest, 1 View Ordered. EDMS 15:41 BMP Reviewed. jo4 15:42 CBC with Diff Reviewed. jo4 15:43 RBC MORPH PROF NO CHARGE Ordered. EDMS 15:46 CBC with Diff Reviewed. jo4 16:26 Financial registration complete. gjb 16:30 [facility] Payment Agreement was scanned into GBooking and attached to record. gjb 16:50 morphine 2 mg IVP once ordered. jo4 16:50 Ondansetron 4 mg IVP once ordered. jo4 16:51 PT/INR Ordered. EDMS 16:51 PTT Ordered. EDMS 16:51 Type & Screen Ordered. EDMS 16:55 BED REQUEST+ADM ordered. EDMS 17:55 PTT Reviewed. jo4 18:02 CBC with Diff Reviewed. jo4 18:03 ECG WITH READING ER PHYS+CARDIAG ordered. EDMS 18:35 NPO DIET ordered. EDMS 18:43 Type & Screen Reviewed. jo4 18:44 RBC MORPH PROF NO CHARGE Reviewed. jo4 18:44 PT/INR Reviewed. jo4 19:17 Admission / Observation Status ordered. EDMS 20:59 morphine 2 mg IVP once ordered. kas2 22:24 Written Provider Order was scanned into GBook[employer] and attached to record. tm 08/31 09:58 T-Sheet-- Draft Copy was scanned into GBooking and attached to record. gb 09:58 ECG/EKG was scanned into GBook[employer] and attached to record. gb 09:59 Rhythm Strip was scanned into GBook[employer] and attached to record. gb Administered Medications: 08/30 15:24 Drug: Ondansetron 4 mg [ondansetron HCl 2 mg/mL intravenous solution (2 mL)] Route: b IVP; Site: right antecubital; 15:24 Drug: morphine 2 mg [morphine 2 mg/mL intravenous cartridge (1 mL)] Route: IVP; Site: b right antecubital; 17:08 Drug: morphine 2 mg [morphine 2 mg/mL intravenous cartridge (1 mL)] Route: IVP; Site: b right antecubital; 17:08 Drug: Ondansetron 4 mg [ondansetron HCl 2 mg/mL intravenous solution (2 mL)] Route: jmb IVP; Site: right antecubital; 20:58 CANCELLED (wrong amount ordered): morphine 1 mg IVP once [facility] 21:05 Drug: morphine 2 mg [morphine 2 mg/mL intravenous cartridge (1 mL)] Route: IVP; Site: [facility] right antecubital; 22:25 Follow up: BP 132 / 64; Pulse 65 bpm; Resp 18 bpm; Temp 98.0; Pulse Ox 99% ; Pain 2/10 [facility] Adult Signatures: Dispatcher [employer] [facility] MD ml Annabel Akhtar, Reg Reg gb Thelma Sheriff RN RN hs1 Whit Simon, DRY TRANSFER WORKER DRY TRANSFER WORKER tmm1 Kike Thakur RN RN jmb Nunez, NikkoleRN RN nn1 Purnima Ponce Jane, DO jo4 Kim Grossman RN RN [facility] Dick Thomas RN RN The chart was reviewed and I authenticate all verbal orders and agree with the evaluation and treatment provided.Corrections: (The following items were deleted from the chart) 14:34 14:13 Home Meds: Omeprazole Oral once daily; hs1 mary 17:10 15:14 Margin Analyst ordered. danilo carrasco 20:58 20:58 morphine 1 mg IVP once ordered. [place] [id number] Attachments: 16:30 [facility] Payment Agreement [facility] 22:24 Written Provider Order [email or web address] 08/31 09:58 T-Sheet-- Draft Copy 09:58 ECG/EKG Chart Complete MTDD
--- NOTE | 2016-09-02 00:39 | EDDOCDS ---
Nurse's Notes [facility] Name: Bi Flores Age: 75 yrs Sex: Female : 1940 Arrival Date: 08/30/2016 Time: 13:59 Bed Admit Hold Private MD: Diagnosis: Intertrochanteric fracture of femur Presentation: 08/30 14:08 Presenting complaint: EMS states: getting out of car and was tripped up by purse strap. hs1 Patient has osteopetrosis and deformity noted to right leg - positive rotation. Adult Sepsis Screening: The patient does not have new or worsening altered mentation. Patient's respiratory rate is less than 22. Systolic blood pressure is greater than 100. Patient has a qSOFA score of 0- Negative Sepsis Screen. Suicide/Homicide risk assessment- the patient denies having any suicidal and/or homicidal ideations and does not present with any other emotional, behavioral or mental health complaints. Status: Patient is not a electric refrigerator servicer or dependent. Transition of care: patient was not received from another setting of care. Care prior to arrival: See EMS report. Medications administered prior to arrival: morphine 5 mg x2. Saline lock initiated. 14:08 Acuity: ELOY Level 3 hs1 14:08 Method Of Arrival: Ambulance hs1 Triage Assessment: 14:13 General: Appears uncomfortable, Behavior is appropriate for age, cooperative. Pain: hs1 Location: right iliac crest, right hip and right leg. Neurological: Level of Consciousness is awake, alert, obeys commands. Musculoskeletal: Range of motion limited in right hip other noted to right hip. Historical: - Allergies: No known drug Allergies; - Home Meds: 1. pantoprazole 20 mg oral TbEC 1 tab once daily - PMHx: GERD; Osteoporosis; - PSHx: Tonsillectomy; - Social history: No barriers to communication noted, The patient speaks fluent Luxembourger, Speaks appropriately for age, Smoking status: Patient states was never smoker of tobacco. - Family history: Not pertinent. - : The pt / caregiver states he / she is not on anticoagulants. Home medication list is obtained from the patient. - Exposure Risk Screening:: None identified. Screenin:29 Screening information is obtained from the patient. Fall risk: At risk due to jmb immobility, prior history of falls. Assistance ADL's: requires no assistance with activities of daily living. Abuse/DV Screen: The patient / caregiver reports he/she is: not in a situation that causes fear, pain or injury. Nutritional screening: No deficits noted. home support is adequate. 23:36 Advance Directives: Currently, there is no health care proxy. nn1 Assessment: 14:29 General: Appears uncomfortable, Behavior is appropriate for age, cooperative. Pain: jmb Location: right leg and pelvis and right hip and right iliac crest Pain currently is 9 out of 10 on a pain scale. Neurological: Level of Consciousness is awake, alert, obeys commands, Oriented to person, place, time, Crisis Intervention Specialist are equal bilaterally Speech is normal, Facial symmetry appears normal, Facial symmetry: tongue is midline. Cardiovascular: Capillary refill < 3 seconds Heart tones present Pulses are all present. Rhythm is regular. Respiratory: Airway is patent Respiratory effort is even, unlabored, Respiratory pattern is regular, symmetrical, Breath sounds are clear bilaterally. GI: Abdomen is non- distended Bowel sounds present X 4 quads. Abd is soft and non tender X 4 quads. Derm: Skin is pink, warm & dry. Musculoskeletal: Range of motion limited in right hip. 14:57 General: Appears in no apparent distress, Behavior is appropriate for age, cooperative, jmb Patient laying on stretcher, right leg externally rotated and uncomfortable with movement. Right leg shorter than left. NO voiced complaints at this time. . Neurological: Level of Consciousness is awake, alert, obeys commands, Oriented to person, place, time. Respiratory: Airway is patent Respiratory effort is even, unlabored, Respiratory pattern is regular, symmetrical. 16:32 General: Appears in no apparent distress, comfortable, Behavior is appropriate for age, jmb cooperative, Patient laying on stretcher, at bedside. NO voiced complaints at this time. Dr. Jones in with patient. . Neurological: Level of Consciousness is awake, alert, obeys commands, Oriented to person, place, time. Respiratory: Airway is patent Respiratory effort is even, unlabored, Respiratory pattern is regular, symmetrical. 17:09 General: Appears in no apparent distress, comfortable, Behavior is appropriate for age, jmb cooperative. Neurological: Level of Consciousness is awake, alert, obeys commands, Oriented to person, place, time. Respiratory: Airway is patent Respiratory effort is even, unlabored, Respiratory pattern is regular, symmetrical. 17:40 General: Appears in no apparent distress, comfortable, Behavior is appropriate for age, jmb cooperative, Patient laying on stretcher, appears comfortable. NO voiced complaints at this time. . Neurological: Level of Consciousness is awake, alert, obeys commands, Oriented to person, place, time. Respiratory: Airway is patent Respiratory effort is even, unlabored, Respiratory pattern is regular, symmetrical. 18:44 General: Appears in no apparent distress, comfortable, Behavior is appropriate for age, jmb cooperative, Patient laying on stretcher, at bedside. NO voiced complaints at this time. . Neurological: Level of Consciousness is awake, alert, obeys commands, Oriented to person, place, time. Respiratory: Airway is patent Respiratory effort is even, unlabored, Respiratory pattern is regular, symmetrical. 19:00 General: Verbal report given by Carlito Brar RN. Assumed care of patient at this time.. kas2 19:52 General: Appears in no apparent distress, uncomfortable, well nourished, well groomed, kas2 Behavior is appropriate for age, cooperative. Pain: Location: right leg and pelvis and right hip and right iliac crest Pain currently is 5 out of 10 on a pain scale. Neurological: Level of Consciousness is awake, alert, obeys commands, Oriented to person, place, time. Cardiovascular: Capillary refill < 3 seconds Heart tones S1 S2 present Rhythm is sinus rhythm. Respiratory: Airway is patent Respiratory effort is even, unlabored, Respiratory pattern is regular, symmetrical, Breath sounds are clear bilaterally. Derm: Skin is intact, is healthy with good turgor, Skin is dry, Skin is pink, warm & dry. Skin temperature is warm. Musculoskeletal: Circulation, motion, and sensation intact Capillary refill < 3 seconds Range of motion limited in right leg and pelvis and right hip and right iliac crest. 21:05 General: Patient laying in bed with at bedside. Patient complaining of R hip kas2 pain 4/. VSS. Meds given for pain. No distress noted. Airway patent and respiratory effort even and unlabored. Call adhikari within reach. Will continue to monitor.. 22:23 General: Appears in no apparent distress, comfortable, well nourished, well groomed, kas2 Behavior is appropriate for age, cooperative. Pain: Location: right leg and pelvis and right hip and right iliac crest Pain currently is 2 out of 10 on a pain scale. Neurological: Level of Consciousness is awake, alert, Oriented to person, place, time. Respiratory: Airway is patent Respiratory effort is even, unlabored, Respiratory pattern is regular, symmetrical. Derm: Skin is intact, Skin is dry, Skin is pink, warm & dry. Skin temperature is warm. Musculoskeletal: Circulation, motion, and sensation intact Capillary refill < 3 seconds Range of motion limited in right leg and pelvis and right hip and right iliac crest. 23:35 Reassessment: Patient appears in no apparent distress at this time. Respiratory: Airway nn1 is patent Respiratory effort is even, unlabored, Respiratory pattern is regular, symmetrical. Derm: Skin is pink, warm & dry. Vital Signs: 14:37 BP 162 / 84; Pulse 80; Resp 20; Temp 98.3(TE); Pulse Ox 100% on R/A; Pain 9/10; jmb 20:14 BP 116 / 65; Pulse 81; Resp 18; Temp 98.9(O); Pulse Ox 96% on R/A; Pain 5/10; kas2 21:05 BP 136 / 66; Pulse 74; Resp 18; Pulse Ox 100% on R/A; Pain 4/10; kas2 22:25 BP 132 / 64; Pulse 65; Resp 18; Temp 98.0; Pulse Ox 99% ; Pain 2/10; kas2 22:49 BP 112 / 63; Pulse 71; Resp 18; Temp 98.1(O); Pulse Ox 100% ; Pain 2/10; kas2 Vitals: 14:37 Log In Time N/A - ambulance arrival. [facility] ED Course: 14:00 Patient visited by Lizzie Shirley, Jute Bag Sewer. deg 14:00 Patient moved to Waiting deg 14:02 Patient moved to 19 [facility] 14:10 Triage Initiated hs1 14:24 [facility] jo4 14:24 Yannick Magdaleno MD is Attending Physician. jo4 14:28 Patient visited by Lita Rousseau DO. jo4 14:28 Patient visited by Lita Rousseau DO. jo4 14:29 The patient / caregiver is instructed regarding the plan of care and ED course. b 14:29 Maintain field IV. Dressing intact. Good blood return noted. Site clean & dry. Gauge & jmb site: 18 gauge left antecubital. 14:31 Patient visited by Kike Thakur RN. jmb 14:58 Patient visited by Kike Thakur RN. jmb 15:19 BMP Sent. jmb 15:19 CBC with Diff Sent. jmb 16:30 [facility] Payment Agreement was scanned into [employer] and attached to record. gjb 16:33 Patient visited by Kike Thakur RN. jmb 16:35 Chest, 1 View Returned. EDMS 16:35 CT Head Without Contrast Returned. EDMS 16:35 Hip,AP,LAT to include Pelvis Returned. EDMS 16:35 Femur Returned. EDMS 16:35 Knee, Complete Returned. EDMS 17:03 Brandy Hagen is Hospitalizing Provider. jo4 17:08 Type & Screen Sent. jmb 17:08 PTT Sent. jmb 17:08 PT/INR Sent. jmb 17:09 Patient visited by Kike Thakur RN. jmb 17:40 Patient visited by Kike Thakur RN. jmb 18:02 Patient moved to Admit Hold js13 18:44 Patient visited by Kike Thakur RN. jmb 18:57 Patient visited by Betzaida Clemente PCA. ct3 18:57 Kim Grossman RN is Primary Nurse. kas2 18:57 EKG done. (by ED staff). Reviewed by Lita Rousseau DO. ct3 19:00 Patient visited by Kim Grossman RN. kas2 19:54 Patient visited by Kim Grossman RN. kas2 20:13 Patient visited by Kim Grossman RN. kas2 20:44 Patient visited by Kim Grossman RN. kas2 21:07 Patient visited by Kim Grossman RN. kas2 22:08 EKG-ADULT Returned. EDMS 22:24 Patient visited by Kim Grossman RN. kas2 22:24 Written Provider Order was scanned into [employer] and attached to record. tmm1 22:25 Patient visited by Kim Grossman RN. kas2 22:49 No procedures done that require assistance. kas2 22:55 Patient visited by Kim Grossman RN. kas2 08/31 09:58 T-Sheet-- Draft Copy was scanned into [employer] and attached to record. gb 09:58 ECG/EKG was scanned into [employer] and attached to record. gb 09:59 Rhythm Strip was scanned into [employer] and attached to record. gb Administered Medications: 08/30 15:24 Drug: Ondansetron 4 mg [ondansetron HCl 2 mg/mL intravenous solution (2 mL)] Route: b IVP; Site: right antecubital; 15:24 Drug: morphine 2 mg [morphine 2 mg/mL intravenous cartridge (1 mL)] Route: IVP; Site: b right antecubital; 17:08 Drug: morphine 2 mg [morphine 2 mg/mL intravenous cartridge (1 mL)] Route: IVP; Site: [facility] right antecubital; 17:08 Drug: Ondansetron 4 mg [ondansetron HCl 2 mg/mL intravenous solution (2 mL)] Route: b IVP; Site: right antecubital; 20:58 CANCELLED (wrong amount ordered): morphine 1 mg IVP once [facility] 21:05 Drug: morphine 2 mg [morphine 2 mg/mL intravenous cartridge (1 mL)] Route: IVP; Site: [facility] right antecubital; 22:25 Follow up: BP 132 / 64; Pulse 65 bpm; Resp 18 bpm; Temp 98.0; Pulse Ox 99% ; Pain 2/10 [facility] Adult Attachments: 09:59 Rhythm Strip Order Results: Lab Order: CBC with Diff; SPEC'M 08/30/16 15:18 Test: WHITE BLOOD COUNT; Value: 11.7; Range: 4.0-10.0; Abnormal: Above high normal; Units: K/mm3; Status: F Test: RED BLOOD COUNT; Value: 4.08; Range: 4.00-5.40; Units: M/mm3; Status: F Test: HEMOGLOBIN; Value: 13.1; Range: 12.0-16.0; Units: g/dl; Status: F Test: HEMATOCRIT; Value: 38.4; Range: 36.0-47.0; Units: %; Status: F Test: MEAN CORPUSCULAR VOLUME; Value: 94.3; Range: 80.0-96.0; Units: fl; Status: F Test: MEAN CORPUSCULAR HEMOGLOBIN; Value: 32.1; Range: 27.0-33.0; Units: pg; Status: F Test: MEAN CORPUSCULAR HGB CONC; Value: 34.1; Range: 32.0-36.5; Units: g/dl; Status: F Test: RED CELL DISTRIBUTION WIDTH; Value: 11.5; Range: 11.5-14.5; Units: %; Status: F Test: PLATELET COUNT, AUTOMATED; Value: 180; Range: 150-450; Units: k/mm3; Status: F Test: NEUTROPHILS %; Value: 80.1; Range: 36.0-66.0; Abnormal: Above high normal; Units: %; Status: F Test: LYMPH %; Value: 13.1; Range: 24.0-44.0; Abnormal: Below low normal; Units: %; Status: F Test: MONO %; Value: 4.2; Range: 0.0-5.0; Units: %; Status: F Test: EOS %; Value: 1.1; Range: 0.0-3.0; Units: %; Status: F Test: BASO %; Value: 0.3; Range: 0.0-1.0; Units: %; Status: F Test: LARGE UNSTAINED CELL %; Value: 1.2; Range: 0.0-4.0; Units: %; Status: F Test: NEUTROPHILS #; Value: 9.4; Range: 1.8-7.7; Abnormal: Above high normal; Units: K/mm3; Status: F Test: LYMPH #; Value: 1.5; Range: 1.5-4.5; Units: K/mm3; Status: F Test: MONO #; Value: 0.5; Range: 0.0-0.8; Units: K/mm3; Status: F Test: EOS #; Value: 0.1; Range: 0.0-0.50; Units: K/mm3; Status: F Test: BASO #; Value: 0.0; Range: 0.0-0.2; Units: K/mm3; Status: F Test: LARGE UNSTAINED CELL #; Value: 0.1; Range: 0.0-0.4; Units: K/mm3; Status: F Lab Order: [facility]; SPEC'M 08/30/16 15:18 Test: GLUCOSE, FASTING; Value: 101; Range: 83-110; Units: MG/DL; Status: F Test: BLOOD UREA NITROGEN; Value: 24; Range: 7-18; Abnormal: Above high normal; Units: MG/DL; Status: F Test: CREATININE FOR GFR; Value: 1.25; Range: 0.55-1.02; Abnormal: Above high normal; Units: MG/DL; Status: F Test: GLOMERULAR FILTRATION RATE; Value: 44.2; Range: >39; Status: F Test: SODIUM LEVEL; Value: 140; Range: 136-145; Units: MEQ/L; Status: F Test: POTASSIUM SERUM; Value: 4.6; Range: 3.5-5.1; Units: MEQ/L; Status: F Test: CHLORIDE LEVEL; Value: 104; Range: 98-107; Units: MEQ/L; Status: F Test: CARBON DIOXIDE LEVEL; Value: 27; Range: 21-32; Units: MEQ/L; Status: F Test: ANION GAP; Value: 9; Range: 8-16; Units: MEQ/L; Status: F Test: CALCIUM LEVEL; Value: 10.2; Range: 8.8-10.2; Units: MG/DL; Status: F Test Note: ; Units are mL/min/1.73 m2 Chronic Kidney Disease Staging per NKF: Stage I & II GFR >=60 Normal to Mildly Decreased Stage III GFR 30-59 Moderately Decreased Stage IV GFR 15-29 Severely Decreased Stage V GFR <15 Very Little GFR Left ESRD GFR <15 on LEGAL TRANSCRIBER Lab Order: RBC MORPH PROF NO CHARGE; SPEC'M 08/30/16 15:18 Test: PLATELET ESTIMATE; Range: NORMAL; Status: I Test: RBC MORPHOLOGY; Value: NORMAL; Status: F Test: PLATELET CLUMPS; Value: SMALL AMT; Status: F Test: PLATELET ESTIMATE; Value: NORMAL; Range: NORMAL; Status: F Lab Order: PT/INR; SPEC'M 08/30/16 17:06 Test: PROTHROMBIN TIME; Value: 12.7; Range: 12.3-14.5; Units: SECONDS; Status: F Test: INR; Value: 0.94; Status: F Test Note: ; THERAPUTIC HUMAN INR VALUES INDICATIONS NORMAL RANGES PROPHYLAXIS/TREATMENT OF: VENOUS THROMBOSIS 2.0-3.0 PULMONARY EMBOLISM 2.0-3.0 PREVENTION OF SYSTEMIC EMBOLISM FROM: TISSUE HEART VALVES 2.0-3.0 ACUTE MYOCARDIAL INFARCTION 2.0-3.0 VALVULAR HEART DISEASE 2.0-3.0 ATRIAL FIBRILLATION 2.0-3.0 MECHANICAL VALVES(HIGH RISK) 2.5-3.5 RECURRENT MYOCARDIAL INFARCTION 2.5-3.5 Lab Order: PTT; SPEC'M 08/30/16 17:06 Test: PARTIAL THROMBOPLASTIN TIME; Value: 26.4; Range: 26.6-37.1; Abnormal: Below low normal; Units: SECONDS; Status: F Lab Order: Type & Screen; SPEC'M 08/30/16 17:06 Test: BLOOD TYPE; Value: B NEG; Status: F Test: AB SCREEN (INDIRECT RADHA)GEL; Value: NEGATIVE; Status: F Radiology Order: CT Head Without Contrast Test: CT Head Without Contrast REASON FOR EXAMINATION: Mechanical fall; hit head; CT HEAD WITHOUT CONTRAST:; ; HISTORY: Injury.; ; Areas of decreased attentuation are present in the periventricular white matter.; This represents small vessel ischemic disease. There is no intraparenchymal; hemorrhage, mass, or midline shift. The ventricular system and cortical sulci are; dilated consistent with minimal volume loss. There is no extracerebral; collection. The visualized sinuses are clear.; ; IMPRESSION:; ; 1. Small vessel ischemic disease.; ; 2. Minimal volume loss.; ; ; Signed by; Andrew Coleman MD 08/30/2016 04:40 P; Radiology Order: Hip,AP,LAT to include Pelvis Test: Hip,AP,LAT to include Pelvis REASON FOR EXAMINATION: Mechanical fall; hip pain; RIGHT HIP AND PELVIS, THREE VIEWS:; ; HISTORY: Fall.; ; There is a comminuted intertrochanteric fracture of the right femur. There is no; dislocation. There is narrowing of the hip joint spaces.; ; IMPRESSION:; ; Comminuted intertrochanteric fracture of the right femur.; ; ; Signed by; Andrew Coleman MD 08/30/2016 04:40 P; Radiology Order: Knee, Complete Test: Knee, Complete REASON FOR EXAMINATION: Mechanical fall; knee pain; RIGHT KNEE, TWO VIEWS:; ; HISTORY: Injury.; ; Limited views of the right knee demonstrate no fracture or dislocation.; ; IMPRESSION:; ; Limited examination demonstrating no fracture or dislocation.; ; ; Signed by; Andrew Coleman MD 08/30/2016 04:40 P; Radiology Order: Femur Test: Femur REASON FOR EXAMINATION: Mechanical fall; hip and knee pain; RIGHT FEMUR, TWO VIEWS:; ; The comminuted intertrochanteric fracture is not seen in the present; radiographs. There is no fracture of the distal two-thirds of the right femur.; ; IMPRESSION:; ; There is no acute fracture or dislocation.; ; ; Signed by; Andrew Coleman MD 08/30/2016 04:41 P; Radiology Order: Chest, 1 View Test: Chest, 1 View REASON FOR EXAMINATION: Mechanical fall; Chest one-view; ; HISTORY: Injury; ; Comparison: 02/14/2009; ; The lungs are clear. The heart is normal in size. The pulmonary vasculature is; normal in appearance.; ; Impression: No acute disease.; ; ; Signed by; Andrew Coleman MD 08/30/2016 03:59 P; Radiology Order: EKG-ADULT Test: EKG-ADULT REASON FOR EXAMINATION: Mechanical fall; Stationary ECG Study; [facility] - ED; ; Test Date: 2016-08-30; Pat Name: BI FLORES Department:; Room: -; Gender: F Patch Setter: ct; : 1940 Requested By: LITA DIXON; Order Number: [id number] Reading MD: Wilfrido Wade; Measurements; Intervals [place]; Rate: 75 P: 6; GA: 156 QRS: 10; QRSD: 88 T: 7; QT: 398; QTc: 446; Interpretive Statements; SINUS RHYTHM; ; Electronically Signed On 08-30-2016 22:02:33 EST by Wilfrido Wade; Outcome: 08/30 17:03 Decision to Hospitalize by Provider. jo4 22:47 Discharge Assessment: patient administered narcotics - yes. Patient was admitted to the [address] or transferred to another facility. The following High Risk Discharge criteria are identified: None. Admitted to Med/Surg accompanied by tech, via stretcher, with chart. Condition: good Condition: stable Condition: improved. CT Study completed. Property :Personal belongings accompany Pt. 23:37 Patient left the ED. nn1 Signatures: Dispatcher [employer] EDMS Shelly Orosco, RN RN kcs Lizzie Shirley, Jute Bag Sewer Unit deg Annabel Akhtar, Reg Reg gb Thelma Sheriff RN RN hs1 Betzaida Clemente, FISHING FLOATS ASSEMBLER FISHING FLOATS ASSEMBLER ct3 Pricilla Leo RN RN js13 McLear, Whit, FISHING FLOATS ASSEMBLER FISHING FLOATS ASSEMBLER tmm1 Kike Thakur RN RN aidanb Alan TaylorRN RN nn1 Purnima Ponce Jane, DO DO jo4 Kim Grossman RN RN kas2 Corrections: (The following items were deleted from the chart) 14:34 14:13 Home Meds: Omeprazole Oral once daily; hs1 mary Chart Complete MTDD
--- NOTE | 2016-09-02 00:39 | EDDOCDS ---
Physician Documentation [facility] Name: Aimee Flores Age: 75 yrs Sex: Female : 1940 Arrival Date: 08/30/2016 Time: 13:59 Bed Admit Hold Private MD: Disposition: 08/30/16 17:03 Hospitalization ordered by Brandy Hagen for Inpatient Admission. Preliminary diagnosis is Intertrochanteric fracture of femur. - Bed requested for 4 [place]. - Status is Inpatient Admission. nn1 - Condition is Stable. - Problem is new. - Symptoms are unchanged. Historical: - Allergies: No known drug Allergies; - Home Meds: 1. pantoprazole 20 mg oral TbEC 1 tab once daily - PMHx: GERD; Osteoporosis; - PSHx: Tonsillectomy; - Social history: No barriers to communication noted, The patient speaks fluent Gibraltarian, Speaks appropriately for age, Smoking status: Patient states was never smoker of tobacco. - Family history: Not pertinent. - : The pt / caregiver states he / she is not on anticoagulants. Home medication list is obtained from the patient. - Exposure Risk Screening:: None identified. Vital Signs: 08/30 14:37 BP 162 / 84; Pulse 80; Resp 20; Temp 98.3(TE); Pulse Ox 100% on R/A; Pain 9/10; jmb 20:14 BP 116 / 65; Pulse 81; Resp 18; Temp 98.9(O); Pulse Ox 96% on R/A; Pain 5/10; kas2 21:05 BP 136 / 66; Pulse 74; Resp 18; Pulse Ox 100% on R/A; Pain 4/10; kas2 22:25 BP 132 / 64; Pulse 65; Resp 18; Temp 98.0; Pulse Ox 99% ; Pain 2/10; kas2 22:49 BP 112 / 63; Pulse 71; Resp 18; Temp 98.1(O); Pulse Ox 100% ; Pain 2/10; kas2 MDM: 15:05 CT Head Without Contrast Ordered. EDMS 15:06 Hip,AP,LAT to include Pelvis Ordered. EDMS 15:06 Knee, Complete Ordered. EDMS 15:06 CBC with Diff Ordered. EDMS 15:06 BMP Ordered. EDMS 15:13 IV Saline Lock ordered. ml 15:14 Ondansetron 4 mg IVP once ordered. jo4 15:14 Rhythm Strip to chart ordered. jo4 15:15 morphine 2 mg IVP once ordered. jo4 15:18 Femur Ordered. EDMS 15:32 Chest, 1 View Ordered. EDMS 15:41 BMP Reviewed. jo4 15:42 CBC with Diff Reviewed. jo4 15:43 RBC MORPH PROF NO CHARGE Ordered. EDMS 15:46 CBC with Diff Reviewed. jo4 16:26 Financial registration complete. gjb 16:30 [facility] Payment Agreement was scanned into SensorTran and attached to record. gjb 16:50 morphine 2 mg IVP once ordered. jo4 16:50 Ondansetron 4 mg IVP once ordered. jo4 16:51 PT/INR Ordered. EDMS 16:51 PTT Ordered. EDMS 16:51 Type & Screen Ordered. EDMS 16:55 BED REQUEST+ADM ordered. EDMS 17:55 PTT Reviewed. jo4 18:02 CBC with Diff Reviewed. jo4 18:03 ECG WITH READING ER PHYS+CARDIAG ordered. EDMS 18:35 NPO DIET ordered. EDMS 18:43 Type & Screen Reviewed. jo4 18:44 RBC MORPH PROF NO CHARGE Reviewed. jo4 18:44 PT/INR Reviewed. jo4 19:17 Admission / Observation Status ordered. EDMS 20:59 morphine 2 mg IVP once ordered. kas2 22:24 Written Provider Order was scanned into SensorTr[employer] and attached to record. tm 08/31 09:58 T-Sheet-- Draft Copy was scanned into SensorTr[employer] and attached to record. gb 09:58 ECG/EKG was scanned into Sensor[employer] and attached to record. gb 09:59 Rhythm Strip was scanned into SensorTr[employer] and attached to record. gb Administered Medications: 08/30 15:24 Drug: Ondansetron 4 mg [ondansetron HCl 2 mg/mL intravenous solution (2 mL)] Route: b IVP; Site: right antecubital; 15:24 Drug: morphine 2 mg [morphine 2 mg/mL intravenous cartridge (1 mL)] Route: IVP; Site: b right antecubital; 17:08 Drug: morphine 2 mg [morphine 2 mg/mL intravenous cartridge (1 mL)] Route: IVP; Site: b right antecubital; 17:08 Drug: Ondansetron 4 mg [ondansetron HCl 2 mg/mL intravenous solution (2 mL)] Route: jmb IVP; Site: right antecubital; 20:58 CANCELLED (wrong amount ordered): morphine 1 mg IVP once [facility] 21:05 Drug: morphine 2 mg [morphine 2 mg/mL intravenous cartridge (1 mL)] Route: IVP; Site: [facility] right antecubital; 22:25 Follow up: BP 132 / 64; Pulse 65 bpm; Resp 18 bpm; Temp 98.0; Pulse Ox 99% ; Pain 2/10 [facility] Adult Signatures: Dispatcher [employer] ED[facility]ly [facility] MD MD ml Annabel Akhtar, Reg Reg gb Thelma Sheriff RN RN hs1 Whit Simon, LOG GETTER LOG GETTER [email or web address] Kike Thakur RN RN jmb Nunez, NikkoleRN RN nn1 Purnima Ponce Jane, DO jo4 Kim Grossman RN RN [facility] Dick Thomas RN RN The chart was reviewed and I authenticate all verbal orders and agree with the evaluation and treatment provided.Corrections: (The following items were deleted from the chart) 14:34 14:13 Home Meds: Omeprazole Oral once daily; hs1 mary 17:10 15:14 Architect ordered. danilo carrasco 20:58 20:58 morphine 1 mg IVP once ordered. [place] [id number] Attachments: 16:30 [facility] Payment Agreement [facility] 22:24 Written Provider Order [email or web address] 08/31 09:58 T-Sheet-- Draft Copy 09:58 ECG/EKG Chart Complete MTDD
--- NOTE | 2016-09-02 06:41 | DSES ---
DATE OF ADMISSION: 08/30/2016 DATE OF DISCHARGE: 09/01/2016 PRIMARY CARE PROVIDER: Dr. Harvey. ORTHOPEDIC SURGEON: Dr. Dennis Geller. FINAL DIAGNOSIS: 1. Right intertrochanteric femur fracture secondary to mechanical fall. 2. Gastrointestinal reflux disease (GERD). 3. Osteoporosis. 4. History of diverticulosis. 5. History of hiatal hernia. 6. Acute blood loss anemia in the setting of right intertrochanteric fracture and ORIF repair HISTORY OF PRESENT ILLNESS: This is a 75-year-old female patient with underlying medical history of osteoporosis, gastrointestinal reflux disease (GERD) who presented to the emergency room with right hip pain that started tonight. Earlier the patient was at the gym working out, doing her free weights and rolling machine and after finishing the gym she decided to go to the grocery store. As she got out of the car to go into the grocery, her legs was caught by the strap of her gym bag and she fell on her right leg subsequently causing significant pain. No episodes of dizziness, lightheadedness, palpitation, chest pain, shortness of breath or loss of consciousness. No prior leg injury. At baseline she is very active, is able to go on the elliptical machine for one hour, walks up and down the stairs without any problems. HOSPITAL COURSE: The patient was admitted to the hospital under hospitalist service. Orthopedics was consulted. The patient was optimized for surgery. The patient tolerated surgery, was placed on Coumadin for deep venous thrombosis (DVT) prophylaxis as per orthopedics. Physical therapy evaluation was done. Physical medicine and rehabilitation (PM R) screen was ordered. Currently the patient is tolerating oral comfortably, no acute distress, accepted by acute rehabilitation under PM R for further care. VITAL SIGNS: Temperature 98.9, pulse 92, respirations 18, blood pressure 103/52, pulse oximetry 94% on room air. LABORATORY: WBC 10.5, hemoglobin 8.5, hematocrit 24.9, platelets 157. Chemistries: Sodium 141, potassium 3.8, chloride 107, bicarbonate 24, BUN 14, creatinine 0.89. DISCHARGE MEDICATIONS: - Colace 100 mg by mouth twice a day - pain regimen, recommend Percocet 5/325 mg by mouth every 4 hours as needed for pain - Coumadin 5 mg by mouth daily, check INR - continue vitamin C 500 mg by mouth daily - Biotin 1000 mcg by mouth daily - calcium 600 mg by mouth twice a day - vitamin D 1000 units by mouth daily - fish oil 1000 mg by mouth twice a day - magnesium oxide 500 mg by mouth daily - multivitamin one tablet by mouth daily - Protonix 40 mg by mouth daily DISCHARGE INSTRUCTIONS: The patient is instructed to followup with PM R provider for further care after discharge. Followup with primary care provider in seven days and followup with orthopedic doctors as recommended. MTDD
== END 2016-09-01 15:53 | DRG 481 ==
LOC: M ED 13:59 → M ED INP 19:10 → M MSPAV 23:41 → M MS5PR 08-31 22:35
PROVIDERS: ADMIT Internal Medicine; ATTEND Hospitalist
PROC: 0QS606Z Reposition Right Upper Femur with Intramedullary Internal Fixation Device, Open Approach (ICD-10-PCS; principal; 2016-08-31 15:00)
DX: S72.141A Displaced intertrochanteric fracture of right femur, initial encounter for closed fracture (principal); D62 Acute posthemorrhagic anemia; W18.09XA Striking against other object with subsequent fall, initial encounter; Y92.481 Parking lot as the place of occurrence of the external cause; M81.0 Age-related osteoporosis without current pathological fracture; K21.9 Gastro-esophageal reflux disease without esophagitis; Z79.899 Other long term (current) drug therapy

== ENCOUNTER 2016-09-01 15:25 | Inpatient (IN) | payer MEDICARE ==
[~2016-09-01] VITALS: Ht 149.9 cm; Wt 55.5 kg
[~2016-09-01 15:25] MED LIST: BIOT10005 PO; CALC600T10 PO; FISH1000 PO; MAGN500T2 PO; PANT40TA2 PO; VITA100066 PO; VITA500T88 PO; VITMTA PO
[2016-09-01] MEDS ORDERED: PERCOCET PO (15:32)
[2016-09-01] MEDS ORDERED: COLA100C PO (15:32)
[2016-09-01] MEDS ORDERED: COUM1TAB17 PO (15:32)
[2016-09-01] MEDS ORDERED: MOM 30ML SUSPENSION UDC PO PRN (15:45)
[2016-09-01 16:12] VITALS: BP 102/54
--- NOTE | 2016-09-01 16:17 | HPEPDOC ---
Business Objects Developer Note ADMISSION H&P + ERNESTINA DATE OF ADMISSION: 09/01/2016 DATE OF SERVICE: 09/01/2016 IDENTIFICATION STATEMENT: Patient is a 75-year-old woman status post ORIF for right comminuted intertrochanteric fracture admitted for comprehensive integrated inpatient rehabilitation. Thereve been no significant changes in the patients condition since the preadmission screening. HISTORY OF PRESENT ILLNESS: Patient is a 75-year-old high functioning woman with a history of osteoporosis gastroesophageal reflux disease and diverticulitis who sustained a mechanical fall getting out of a car. Patient reports getting her right foot entangled in the handle of her gym bag and tripping onto the right side. She was unable to get up. She was brought to [facility] via EMS and found to have a right comminuted intertrochanteric femur fracture. She underwent ORIF with Dr. Dennis Geller. Postoperative course was notable for anemia of acute blood loss as well as lightheadedness and nausea. On evaluation today, the patient reports right lower limb pain as well as distal paresthesias. Current pain medication does help alleviate the pain. But she is also experiencing lightheadedness upon sitting on the edge of the bed and some stomach upset. Her Mathew catheter was removed this morning, but she is not yet urinated (approximately 8 hours post discontinuing Mathew). She has yet to have a bowel movement as well. PAST MEDICAL HISTORY: Osteoporosis Hiatal hernia Gastroesophageal reflux disease Diverticulitis PAST SURGICAL HISTORY: Tonsillectomy Toe surgery ALLERGIES: No known drug allergies MEDICATIONS: Coumadin 5 mg 1 Vitamin D 1000 units by mouth daily MiraLAX 1 packet by mouth daily Protonix 40 mg by mouth daily when necessary I wanted 0.2 mg IV every 3 hours when necessary Diluted 0.4 mg IV every 3 hours when necessary [place] Percocet 1 tab every 4 hours by mouth when necessary Percocet 2 tabs by mouth every 4 hours when necessary Phenergan 12.5 mg IV every 6 hours when necessary Colace 100 mg by mouth twice a day Senokot-S 1 tab by mouth twice a day FAMILY HISTORY: Family history of alcoholism SOCIAL HISTORY: Patient lives with her in a two-story home. There is anywhere from one to force full height steps to enter the house. Her master bedroom and bathroom on the second floor; however, there is the possibility of a first floor set up. She has 2 grown sons. Patient states she tried smoking once when she was teenager, but is never smoked since. She reports occasional alcohol use, citing a glass of wine per week. She denies any illicit drug use, past or present. Review of Systems: General: no chills, +fatigue, no weight changes. Eyes: no change of vision, + reading glasses. Ears, Nose & Throat: no sore throat, decreased hearing or nasal discharge. Cardiovascular: no chest pain, claudication, edema, syncopal episodes. Pul: no cough, SOB. GI: no abdominal pain, not moved her bowels, frequently gets reflux, currently having some stomach upset that she is attributing to the pain medication, no vomiting. Genitourinary: Has not urinated or had urged to urinate since Mathew catheter was removed this morning. Gynecological: post-menopausal . Musculoskeletal: Right hip and lower limb pain, no chronic back/neck/joint pain, no muscle pain. Neurological: +N/T right foot after the fall, but currently unable to discern if it still present, no tremors, progressive weakness, seizures, JIMENES. Hematological: No bleeding disorders. Skin: no rashes. Psychiatric: no depression, anxiety, behavioral issues. VITAL SIGNS: Temperature 101.2F, pulse 87, respiratory rate 18, blood pressure 127/61, 96% saturation on room air PHYSICAL EXAMINATION: GENERAL: Well nourished, well developed, sitting up in bed, no acute distress. HEENT: Normocephalic, atraumatic. No facial droop. No jugular venous distention (JVD). PERRL, EOMI CARDIOVASCULAR: S1, S2, regular rate. No left lower limb edema or calf tenderness. Diffuse mild right lower limb swelling. No right calf tenderness. LUNGS: Clear to auscultation, no wheezing rhonchi or rales. ABDOMEN: Soft, nontender, nondistended. Positive normoactive bowel sounds throughout. MUSCULOSKELETAL: Manual muscle testin/5 strength bilateral upper limbs in all major muscle groups. 3/5 left hip flexors, 5/5 left knee extension, flexion , 5/5 left dorsi flexion, plantar flexion and EHL. 1/5 right hip flexors, 3/5 right knee extension, 4/5 right knee flexion, 5/5 right dorsiflexion, plantar flexion and EHL. Sensation: Intact to soft touch bilateral upper and lower limbs. Deep tendon reflexes: 2+ biceps bilaterally and left patellar, unable to elicit right patellar NEUROLOGICAL: Alert and oriented x 3. It is all questions appropriately. Memory intact. Able to follow commands without difficulty. SKIN: No skin breakdown. LABORATORY DATA: 09/01/2016: WBC count 10.5, hemoglobin 8.5, hematocrit 24.9, platelets 157, sodium 141, potassium 3.8, chloride 107, carbon dioxide 24, BUN 14, creatinine 0.87, GFR greater than 60.0, glucose 94, calcium 7.4, PT 15.7, INR 1.24. IMAGING: X-ray of the pelvis (films and report reviewed, films reviewed with patient and family): 08/30/16: Comminuted right intertrochanteric femur fracture X-ray of the femur 08/31/2016(Films reviewed with patient and family): FUNCTIONAL STATUS, Premorbid: Independent with ADLs and ambulation. Drove regularly ASSESSMENT AND PLAN: 1. Right intertrochanteric comminuted femur fracture status post ORIF now with gait abnormality and dysfunctional ADLs: Patient will be made partial weightbearing on the right lower limb. She will undergo thorough physical and occupational therapy evaluations followed by daily intensive therapy. Rehabilitation nursing for bladder, bowel, medication management and wound care. 2. Anemia of acute blood loss: Will obtain CBC with morning labs. Will also obtain iron studies. 3. DVT prophylaxis: Coumadin dose by ROSALEE Wyatt of the orthopedic service area and well also provide JOHN and SUE robledo. 4. Pain management: Continue discontinue IV Dilaudid given her complaints of nausea and lightheadedness. Will maintain patient on acetaminophen along with Percocet on an as-needed basis. Will provide intermittent ice. Medication adjustments as indicated. 5. Bladder: Given that its been over 8 hours since the patients Mathew catheter has been discontinued, will obtain bladder scans upon admission to evaluate for retention. Treatment as indicated 6. Leukocytosis/fever: Patient noted to have a fever of 101.2. She is currently otherwise asymptomatic. Will repeat labs in the morning with differential. Should fever persist, will obtain a infectious workup. 7. Diet/nutrition: Will obtain a prealbumin with morning labs. Regular diet. Nutritional supplements as indicated. POST ADMISSION PHYSICIAN EVALUATION: On evaluation of the patient today there' ve been no significant medical issues or functional changes as compared to those noted in the preadmission screening document. This patient's inpatient rehabilitation remains necessary in light of the above conditions. The patient' s medical condition requires specialized care with physicians specially trained in physical medicine rehabilitation. The patient is capable motivated to participate in a minimum of 3 hours of therapy daily, 5 days minimum per week, and requires intensive inpatient rehabilitation to improve their functional status so that they can be safely to discharge back to their home. PROGNOSIS: Excellent ESTIMATED LENGTH OF STAY: 7-10 days. / Vital Signs Vital Sign - Last 24 Hours 09/01/16 16:12 Temp 101.2 Pulse 99 Resp 18 B/P 102/54 Pulse Ox 94 O2 Delivery Room Air Home Medications Scheduled Ascorbic Acid (Vitamin C) 500 Mg Tab 500 MG PO DAILY (Reported) Biotin (Vitamin H) (Biotin) 1,000 Mcg Tab 1,000 MCG PO DAILY (Reported) Calcium (Calcium) 600 Mg Tab 600 MG PO BID (Reported) Cholecalciferol (Vitamin D) 1,000 Unit Tab 1,000 UNIT PO DAILY (Reported) Docusate Sodium (Colace) 100 Mg Cap 100 MG PO BID Fish Oil (Fish Oil) 1,000 Mg Cap 1,000 MG PO BID (Reported) Magnesium Oxide (Magnesium) 500 Mg Tab 500 MG PO DAILY (Reported) Multivitamins *[facility] STOCKED* (Thera M Plus *[facility] STOCKED*) 1 Tab Tab 1 TAB PO DAILY (Reported) Warfarin Sod (Coumadin) 5 Mg Tab 5 MG PO DAILY Scheduled PRN Oxycodone/Acetaminophen (Percocet 5MG/325MG Tablet) 1 Tab Tab 1 TAB PO Q4HP PRN PRN PAIN Pantoprazole Sodium (Pantoprazole Sodium) 40 Mg Tab 40 MG PO DAILY PRN PRN HEARTBURN (Reported) Allergies Coded Allergies: ENVIROMENTAL (Unverified Allergy, Unknown, 08/30/16) PRINCESS BIRD MD Sep 01, 2016 16:17
[2016-09-01] MEDS: ACETAMINOPHEN TAB 650MG DOSE (2X325MG) PO PRN (16:56)
[2016-09-01] MEDS ORDERED: WARFARIN SOD 5 MG TAB PO ONE (17:00)
[2016-09-01 20:00] VITALS: BP 118/58
[2016-09-01] MEDS: SENNA 8.6 MG TAB (SENOKOT) PO SCH (20:37)
[2016-09-01] MEDS: DOCUSATE SODIUM 100 MG CAP PO SCH (20:37)
[2016-09-02] MEDS: ACETAMINOPHEN TAB 650MG DOSE (2X325MG) PO PRN (01:47)
[2016-09-02 06:00] VITALS: BP 120/57
[2016-09-02 06:57] LABS: BASO # 0.1 K/mm3 (0.0-0.2); BASO % 0.5 % (0.0-1.0); EOS % 0.4 % (0.0-3.0); LARGE UNSTAINED CELL # 0.1 K/mm3 (0.0-0.4); LYMPH # 1.5 K/mm3 (1.5-4.5); LYMPH % 11.3 % (24.0-44.0); MEAN CORPUSCULAR HEMOGLOBIN 31.5 pg (27.0-33.0); MEAN CORPUSCULAR HGB CONC 32.7 g/dl (32.0-36.5); MEAN CORPUSCULAR VOLUME 96.3 fl (80.0-96.0); MONO # 0.7 K/mm3 (0.0-0.8); MONO % 5.8 % (0.0-5.0); NEUTROPHILS # 9.6 K/mm3 (1.8-7.7); NEUTROPHILS % 80.9 % (36.0-66.0); PLATELET COUNT, AUTOMATED 159 k/mm3 (150-450); RED CELL DISTRIBUTION WIDTH 12.6 % (11.5-14.5); WHITE BLOOD COUNT 11.9 K/mm3 (4.0-10.0)
[2016-09-02 07:07] LABS: INR 2.22
[2016-09-02 07:57] LABS: ANION GAP 9 MEQ/L (8-16); BLOOD UREA NITROGEN 13 MG/DL (7-18); CARBON DIOXIDE LEVEL 26 MEQ/L (21-32); CHLORIDE LEVEL 107 MEQ/L (98-107); CREATININE FOR GFR 0.94 MG/DL (0.55-1.02); FERRITIN 277 NG/ML (8-252); GLOMERULAR FILTRATION RATE > 60.0 (>39); GLUCOSE, FASTING 120 MG/DL (83-110); POTASSIUM SERUM 3.9 MEQ/L (3.5-5.1); SODIUM LEVEL 142 MEQ/L (136-145); TOTAL IRON BINDING CAPACITY 179 UG/DL (250-450)
[2016-09-02] MEDS: FERROUS GLUCONATE 324 MG TAB PO SCH ×3 (09:46→22:56)
[2016-09-02] MEDS: ASCORBIC ACID 500 MG TAB PO SCH ×3 (09:47→22:57)
[2016-09-02] MEDS: DOCUSATE SODIUM 100 MG CAP PO SCH ×2 (09:47→22:57)
[2016-09-02] MEDS: VITAMIN D 1,000 INTERNATIONAL UNITS TABLET PO SCH (09:47)
[2016-09-02] MEDS: MULTIVITAMINS/MINERALS THERAP 1 TAB PO SCH (09:47)
[2016-09-02] MEDS: PANTOPRAZOLE 40MG TAB (PROTONIX) PO SCH (09:47)
[2016-09-02] MEDS: PERCOCET 5MG/325MG TAB PO PRN (09:47)
[2016-09-02 14:00] VITALS: BP 108/59
--- NOTE | 2016-09-02 14:16 | IPNPDOC ---
[facility] Progress Note PROGRESS NOTE DATE OF ADMISSION: 09/01/2016 DATE OF SERVICE: 09/02/2016 IDENTIFICATION STATEMENT: Patient is a 75-year-old woman status post ORIF for right comminuted intertrochanteric fracture admitted for comprehensive integrated inpatient rehabilitation. PAST MEDICAL HISTORY: Osteoporosis Hiatal hernia Gastroesophageal reflux disease Diverticulitis PAST SURGICAL HISTORY: Tonsillectomy Toe surgery ALLERGIES: No known drug allergies MEDICATIONS: Coumadin daily Vitamin D 1000 units by mouth daily MiraLAX 1 packet by mouth daily Protonix 40 mg by mouth daily when necessary MVI 1 tab PO daily APAP 650 q4h prn Percocet 1 tab every 4 hours by mouth when necessary Colace 100 mg by mouth twice a day Senna 1 tab by mouth qhs SUBJECTIVE: Patient w/o complaints. Feels pretty good. Less dizzy. Didnt sleep well but that is chronic, at home takes Tylenol pm. Denies any CP, SOB, vomiting , diaphoresis. +Frequency. VITAL SIGNS: Temperature 99.0F, pulse 86, respiratory rate 18, blood pressure 120/57, 96% saturation on room air PHYSICAL EXAMINATION: GENERAL: Well nourished, well developed, sitting up in chair, no acute distress. HEENT: Normocephalic, atraumatic. No facial droop. No jugular venous distention (JVD). PERRL, EOMI CARDIOVASCULAR: S1, S2, regular rate. No left lower limb edema or calf tenderness. Diffuse mild right lower limb swelling. No right calf tenderness. LUNGS: Clear to auscultation, no wheezing rhonchi or rales. ABDOMEN: Soft, nontender, nondistended. Positive normoactive bowel sounds throughout. MUSCULOSKELETAL: MMT: 5/5 strength bilateral upper limbs in all major muscle groups. 3/5 left hip flexors, 5/5 left knee extension, flexion, 5/5 left dorsi flexion, plantar flexion and EHL. 1/5 right hip flexors, 3/5 right knee extension, 4/5 right knee flexion, 5/5 right dorsiflexion, plantar flexion and EHL. NEUROLOGICAL: Alert and oriented x 3. It is all questions appropriately. Able to follow commands without difficulty. SKIN: No skin breakdown. LABORATORY DATA: 09/02/16: reviewed, see below 09/01/2016: WBC count 10.5, hemoglobin 8.5, hematocrit 24.9, platelets 157, sodium 141, potassium 3.8, chloride 107, carbon dioxide 24, BUN 14, creatinine 0.87, GFR greater than 60.0, glucose 94, calcium 7.4, PT 15.7, INR 1.24. IMAGING: X-ray of the pelvis (films and report reviewed, films reviewed with patient and family): 08/30/16: Comminuted right intertrochanteric femur fracture X-ray of the femur 08/31/2016(Films reviewed with patient and family): FUNCTIONAL STATUS, Premorbid: Independent with ADLs and ambulation. Drove regularly ASSESSMENT AND PLAN: 1. Right intertrochanteric comminuted femur fracture status post ORIF now with gait abnormality and dysfunctional ADLs: PWB right lower limb. Continue daily physical and occupational therapy. Rehabilitation nursing for bladder, bowel, medication management and wound care. 2. Anemia, acute blood loss: [place] hgb today. Severe iron deficient so started on iron supplementation. Will discuss transfusion with patient. 3. DVT prophylaxis: Coumadin dose by ROSALEE Wyatt of the orthopedic service. Continue SCD and SUE hose. 4. Pain management: Adequate control. Continue acetaminophen along with Percocet on an as-needed basis. Continue intermittent ice. Medication adjustments as indicated. 5. Bladder: BS volumes reviewed. Ordered UA/Ucx but not collected yet. Requested BS now, may need to SC. 6. Leukocytosis/fever: As above, ordered UA/UCx. 7. Diet/malnutrition: Prealbumin low so ordered Ensure supplements. Regular diet. 8. Insomnia: Ordered Benadryl prn / Vital Signs Vital Sign - Last 24 Hours 09/01/16 09/01/16 09/01/16 09/02/16 16:12 20:00 20:00 06:00 Temp 101.2 99.5 99.0 Pulse 99 88 86 Resp 18 18 18 B/P 102/54 118/58 120/57 Pulse Ox 94 95 96 O2 Delivery Room Air Room Air Room Air Room Air 09/02/16 09/02/16 09/02/16 09:40 09:47 10:17 Resp 18 19 O2 Delivery Room Air Laboratory Data CBC/BMP Laboratory Tests 09/02/16 06:36 Calcium Level 8.0 L, Red Blood Count 2.49 L, Mean Corpuscular Volume 96.3 H, Mean Corpuscular Hemoglobin 31.5, Mean Corpuscular Hemoglobin Concent 32.7, Red Cell Distribution Width 12.6, Neutrophils (%) (Auto) 80.9 H, Lymphocytes (%) ( Auto) 11.3 L, Monocytes (%) (Auto) 5.8 H, Eosinophils (%) (Auto) 0.4, Basophils (%) (Auto) 0.5, Neutrophils # (Auto) 9.6 H, Lymphocytes # (Auto) 1.5, Monocytes # (Auto) 0.7, Eosinophils # (Auto) 0.0, Basophils # (Auto) 0.1 Labs 24H Laboratory Tests 2 09/02/16 06:36: Anion Gap 9, White Blood Count 11.9H, Red Blood Count 2.49L, Hemoglobin 7.9L, Hematocrit 24.0L, Mean Corpuscular Volume 96.3H, Mean Corpuscular Hemoglobin 31.5, Mean Corpuscular Hemoglobin Concent 32.7, Red Cell Distribution Width 12.6 , Platelet Count 159, Neutrophils (%) (Auto) 80.9H, Lymphocytes (%) (Auto) 11.3L , Monocytes (%) (Auto) 5.8H, Eosinophils (%) (Auto) 0.4, Basophils (%) (Auto) 0.5, Neutrophils # (Auto) 9.6H, Lymphocytes # (Auto) 1.5, Monocytes # (Auto) 0.7 , Eosinophils # (Auto) 0.0, Basophils # (Auto) 0.1, Blood Urea Nitrogen 13, Creatinine 0.94, Sodium Level 142, Potassium Level 3.9, Chloride Level 107, Carbon Dioxide Level 26, Calcium Level 8.0L, Ferritin 277H, Glomerular Filtration Rate > 60.0, Iron Level 9L, Large Unclassified Cells # 0.1, Large Unclassified Cells % 1.0, Prealbumin 12.3L, Prothromb Time International Ratio 2.22, Prothrombin Time 24.7H, Total Iron Binding Capacity 179L, Transferrin % Saturation 5.0L Allergies Allergies: Coded Allergies: ENVIROMENTAL (Unverified Allergy, Unknown, 08/30/16) Current Medications Current Medications Current Medications Acetaminophen (Tylenol) 650 mg Q4HP PRN PO MILD PAIN (PS 1-4) Last administered on 09/02/16t 01:47; Start 09/01/16 at 15:45; Stop 10/01/16 at 15:44 Ascorbic Acid (Vitamin C) 500 mg TID PO Last administered on 09/02/16 09:47; Start 09/02/16 at 09:00; Stop 10/02/16 at 08:59 Diphenhydramine HCl (Benadryl) 25 mg QHSP PRN PO INSOMNIA; Start 09/02/16 at 14 :15; Stop 10/02/16 at 14:14 Docusate Sodium (Colace) 100 mg BID PO Last administered on 09/02/16 09:47; Start 09/01/16 at 21:00; Stop 10/01/16 at 20:59 Ferrous Gluconate (Fergon) 324 mg TID PO Last administered on 09/02/16 09:46; Start 09/02/16 at 09:00; Stop 10/02/16 at 08:59 Magnesium Hydroxide (Milk Of Magnesia) 30 ml DAILYPRN PRN PO CONSTIPATION Last administered on 09/02/16 09:46; Start 09/01/16 at 15:45; Stop 10/01/16 at 15:44 Multivitamins (Theragram-M) 1 tab DAILY PO Last administered on 09/02/16 09:47 ; Start 09/02/16 at 09:00; Stop 10/02/16 at 08:59 Oxycodone/ Acetaminophen (Percocet 5mg/ 325mg Tablet) 1 tab Q4HP PRN PO MODERATE/SEVERE PAIN (PS 5-10) Last administered on 09/02/16 09:47; Start 09/01 at 15:45; Stop 09/08/16 at 15:44 Pantoprazole Sodium (Protonix) 40 mg DAILY PO Last administered on 09/02/16 09 :47; Start 09/02/16 at 09:00; Stop 10/02/16 at 08:59 Polyethylene Glycol (Miralax) 1 pkt DAILY PRN PO CONSTIPATION; Start 09/01/16 at 15:45; Stop 10/01/16 at 15:44 Senna (Senokot) 1 tab QHS PO Last administered on 09/01/16 20:37; Start at 21:00; Stop 10/01/16 at 20:59 Vitamin D (Vitamin D) 1,000 units DAILY PO Last administered on 09/02/16t 09:47 ; Start 09/02/16 at 09:00; Stop 10/02/16 at 08:59 PRINCESS BIRD MD Sep 02, 2016 14:16
[2016-09-02 15:01] LABS: YEAST LIKE CELL URINE AUTO LARGE
[2016-09-02 16:00] VITALS: BP 119/59
[2016-09-02 20:00] VITALS: BP 108/53
[2016-09-02] MEDS: SENNA 8.6 MG TAB (SENOKOT) PO SCH (22:56)
[2016-09-02] MEDS: diphenhydrAMINE 25 MG CAP PO PRN (22:56)
[2016-09-03] MEDS: ACETAMINOPHEN TAB 650MG DOSE (2X325MG) PO PRN ×3 (03:32→20:32)
[2016-09-03 06:00] VITALS: BP 133/60
[2016-09-03 07:24] LABS: ANION GAP 8 MEQ/L (8-16); BLOOD UREA NITROGEN 15 MG/DL (7-18); CALCIUM LEVEL 7.8 MG/DL (8.8-10.2); CARBON DIOXIDE LEVEL 28 MEQ/L (21-32); CHLORIDE LEVEL 107 MEQ/L (98-107); CREATININE FOR GFR 0.85 MG/DL (0.55-1.02); GLOMERULAR FILTRATION RATE > 60.0 (>39); GLUCOSE, FASTING 100 MG/DL (83-110); POTASSIUM SERUM 4.2 MEQ/L (3.5-5.1); SODIUM LEVEL 143 MEQ/L (136-145)
[2016-09-03 07:38] LABS: INR 1.64
[2016-09-03 07:45] LABS: BASO % 0.4 % (0.0-1.0); EOS # 0.1 K/mm3 (0.0-0.50); EOS % 1.1 % (0.0-3.0); LARGE UNSTAINED CELL # 0.1 K/mm3 (0.0-0.4); LARGE UNSTAINED CELL % 1.1 % (0.0-4.0); LYMPH # 1.5 K/mm3 (1.5-4.5); MEAN CORPUSCULAR HEMOGLOBIN 31.7 pg (27.0-33.0); MEAN CORPUSCULAR HGB CONC 33.8 g/dl (32.0-36.5); MEAN CORPUSCULAR VOLUME 93.9 fl (80.0-96.0); MONO # 0.6 K/mm3 (0.0-0.8); MONO % 4.8 % (0.0-5.0); NEUTROPHILS # 9.2 K/mm3 (1.8-7.7); NEUTROPHILS % 80.6 % (36.0-66.0); PLATELET COUNT, AUTOMATED 192 k/mm3 (150-450); RED CELL DISTRIBUTION WIDTH 12.6 % (11.5-14.5); WHITE BLOOD COUNT 11.4 K/mm3 (4.0-10.0)
[2016-09-03] MEDS: DOCUSATE SODIUM 100 MG CAP PO SCH ×2 (09:19→20:32)
[2016-09-03] MEDS: ASCORBIC ACID 500 MG TAB PO SCH ×3 (09:19→20:32)
[2016-09-03] MEDS: PANTOPRAZOLE 40MG TAB (PROTONIX) PO SCH (09:19)
[2016-09-03] MEDS: MULTIVITAMINS/MINERALS THERAP 1 TAB PO SCH (09:19)
[2016-09-03] MEDS: VITAMIN D 1,000 INTERNATIONAL UNITS TABLET PO SCH (09:20)
[2016-09-03] MEDS: FERROUS GLUCONATE 324 MG TAB PO SCH ×3 (09:20→20:32)
--- NOTE | 2016-09-03 10:44 | REP ---
Right hip: Four views. History: Postoperative. Comparison study is from August 30, 2016. Findings: The patient is status post intramedullary oli and pinning for subtrochanteric fracture of the right hip. Fractures held in good alignment. There are lateral skin abigail and soft tissue swelling laterally. No change in position from intraoperative films on August 31, 2016. Signed by Chetan Coronado MD 09/03/2016 01:51 P
--- NOTE | 2016-09-03 11:43 | IPNPDOC ---
Status Controller Progress Note PROGRESS NOTE DATE OF ADMISSION: 09/01/2016 DATE OF SERVICE: 09/03/2016 IDENTIFICATION STATEMENT: Patient is a 75-year-old woman status post ORIF for right comminuted intertrochanteric fracture admitted for comprehensive integrated inpatient rehabilitation. PAST MEDICAL HISTORY: Osteoporosis Hiatal hernia Gastroesophageal reflux disease Diverticulitis Gastric bleeding ulcer s/p transfusion Transfusion 2nd miscarriage PAST SURGICAL HISTORY: Tonsillectomy Toe surgery ALLERGIES: No known drug allergies MEDICATIONS: Coumadin daily Vitamin D 1000 units by mouth daily Ferrous gluconate 324 mg tid Vit C 500mg PO tid MiraLAX 1 packet by mouth daily Protonix 40 mg by mouth daily when necessary MVI 1 tab PO daily APAP 650 q4h prn Percocet 1 tab every 4 hours by mouth when necessary Colace 100 mg by mouth twice a day Senna 1 tab by mouth qhs Benadryl 25mg po qhs prn SUBJECTIVE: Patient w/o complaints. Still dizzy/lightheaded. Denies any CP, SOB , vomiting, diaphoresis, C/D. VITAL SIGNS: Temperature 98.7F, pulse 85, respiratory rate 18, blood pressure 133/60, 94% saturation on room air PHYSICAL EXAMINATION: GENERAL: Well nourished, well developed, sitting up in chair, no acute distress. HEENT: Normocephalic, atraumatic. No facial droop. PERRL, EOMI CARDIOVASCULAR: S1, S2, regular rate. No left lower limb edema or calf tenderness. Diffuse mild right lower limb swelling. No right calf tenderness. LUNGS: Clear to auscultation, no wheezing rhonchi or rales. ABDOMEN: Soft, nontender, nondistended. Positive normoactive bowel sounds throughout. MUSCULOSKELETAL: MMT: 5/5 strength bilateral upper limbs in all major muscle groups. 3/5 left hip flexors, 5/5 left knee extension, flexion, 5/5 left dorsi flexion, plantar flexion and EHL. 2/5 right hip flexors, 3/5 right knee extension, 4/5 right knee flexion, 5/5 right dorsiflexion, plantar flexion and EHL. NEUROLOGICAL: Alert and oriented x 3. It is all questions appropriately. Able to follow commands without difficulty. SKIN: No skin breakdown. LABORATORY DATA: 09/03/16: reviewed, see below UA 09/02/16: reviewed, see below 09/01/2016: WBC count 10.5, hemoglobin 8.5, hematocrit 24.9, platelets 157, sodium 141, potassium 3.8, chloride 107, carbon dioxide 24, BUN 14, creatinine 0.87, GFR greater than 60.0, glucose 94, calcium 7.4, PT 15.7, INR 1.24. IMAGING: X-ray of the pelvis (films and report reviewed, films reviewed with patient and family): 08/30/16: Comminuted right intertrochanteric femur fracture X-ray of the femur 08/31/2016(Films reviewed with patient and family): FUNCTIONAL STATUS, Premorbid: Independent with ADLs and ambulation. Drove regularly ASSESSMENT AND PLAN: 1. Right intertrochanteric comminuted femur fracture status post ORIF now with gait abnormality and dysfunctional ADLs: PWB right lower limb. Continue daily physical and occupational therapy. Rehabilitation nursing for bladder, bowel, medication management and wound care. 2. Anemia, acute blood loss + severe iron deficiency: Started on iron supplementation, but Hgb even lower today. Additionally, has persistent dizziness. Discussed transfusion with patient who informed me that she had multiple transfusions in past, one was for bleeding ulcer, other after miscarriage. Discussed risks, benefits transfusion. Patient in agreement with transfusion today. 3. DVT prophylaxis: Coumadin dose by ROSALEE Wyatt of the orthopedic service. Continue SCD and SUE hose. 4. Pain management: Adequate control. Continue acetaminophen along with Percocet on an as-needed basis. Continue intermittent ice. Medication adjustments as indicated. 5. Bladder: Reviewed UA, follow-up Ucx. 6. Leukocytosis/fever: As above, f/u UCx. 7. Diet/malnutrition: Prealbumin low so ordered Ensure supplements. Regular diet. 8. Insomnia: Continue Benadryl prn / Vital Signs Vital Sign - Last 24 Hours 09/02/16 09/02/16 09/02/16 09/02/16 14:00 16:00 20:00 20:00 Temp 99.3 99.1 100.0 Pulse 88 86 95 Resp 18 18 18 B/P 108/59 119/59 108/53 Pulse Ox 95 96 94 O2 Delivery Room Air Room Air Room Air Room Air 09/03/16 06:00 Temp 98.7 Pulse 85 Resp 18 B/P 133/60 Pulse Ox 94 O2 Delivery Room Air Laboratory Data CBC/BMP Laboratory Tests 09/03/16 06:38 Calcium Level 7.8 L, Red Blood Count 2.21 L, Mean Corpuscular Volume 93.9, Mean Corpuscular Hemoglobin 31.7, Mean Corpuscular Hemoglobin Concent 33.8, Red Cell Distribution Width 12.6, Neutrophils (%) (Auto) 80.6 H, Lymphocytes (%) (Auto) 12.0 L, Monocytes (%) (Auto) 4.8, Eosinophils (%) (Auto) 1.1, Basophils (%) ( Auto) 0.4, Neutrophils # (Auto) 9.2 H, Lymphocytes # (Auto) 1.5, Monocytes # ( Auto) 0.6, Eosinophils # (Auto) 0.1, Basophils # (Auto) 0.0 Labs 24H Laboratory Tests 2 09/02/16 14:35: Urine Amorphous Sediment , Urine Appearance CLOUDYH, Urine Color YELLOW, Urine pH 5.0, Urine Specific [place] 1.019, Urine Protein 1+H, Urine Glucose (UA) NEGATIVE, Urine Ketones TRACEH, Urine Urobilinogen 0.2, Urine Bilirubin NEGATIVE , Urine Leukocyte Esterase TRACEH, Urine Bacteria (Auto) 1+H, Urine Blood 1+H, Urine Calcium Carbonate Cryst(Auto) , Urine Calcium Oxalate Cryst (Auto) , Urine Calcium Phosphate Shalini (Auto) , Urine Cellular Casts , Urine Cystine Crystals , Urine Granular Casts (Auto) , Urine Hyaline Casts (Auto) 0, Urine Leucine Crystals , Urine Mucus (Auto) MODERATE, Urine Nitrite NEGATIVE, Urine Oval Fat Bodies (Auto) , Urine RBC (Auto) 7H, Urine Renal Epithelial Cells , Urine Sperm (Auto) , Urine Squamous Epithelial Cells 7, Urine Transitional Epithelial Cells , Urine Trichomonas (Auto) , Urine Triple Phosphate Cryst (Auto ) , Urine Tyrosine Crystals , Urine Uric Acid Crystals (Auto) , Urine WBC (Auto ) 14H, Urine Waxy Casts (Auto) , Urine Yeast-Like Cells (Auto) LARGEH 09/03/16 06:38: Anion Gap 8, White Blood Count 11.4H, Red Blood Count 2.21L, Hemoglobin 7.0L, Hematocrit 20.8L, Mean Corpuscular Volume 93.9, Mean Corpuscular Hemoglobin 31.7 , Mean Corpuscular Hemoglobin Concent 33.8, Red Cell Distribution Width 12.6, Platelet Count 192, Neutrophils (%) (Auto) 80.6H, Lymphocytes (%) (Auto) 12.0L, Monocytes (%) (Auto) 4.8, Eosinophils (%) (Auto) 1.1, Basophils (%) (Auto) 0.4, Neutrophils # (Auto) 9.2H, Lymphocytes # (Auto) 1.5, Monocytes # (Auto) 0.6, Eosinophils # (Auto) 0.1, Basophils # (Auto) 0.0, Blood Urea Nitrogen 15, Creatinine 0.85, Sodium Level 143, Potassium Level 4.2, Chloride Level 107, Carbon Dioxide Level 28, Calcium Level 7.8L, Glomerular Filtration Rate > 60.0, Large Unclassified Cells # 0.1, Large Unclassified Cells % 1.1, Prothromb Time International Ratio 1.64, Prothrombin Time 19.5H Microbiology Microbiology 09/02/16 Urine Culture - Final, Complete Allergies Allergies: Coded Allergies: ENVIROMENTAL (Unverified Allergy, Unknown, 08/30/16) Current Medications Current Medications Current Medications Medications (Trade) Dose Ordered Sig/Eula Route PRN Reason Start Time Stop Time Status Last Admin Dose Admin Acetaminophen (Tylenol) 650 mg Q4HP PRN PO MILD PAIN (PS 1-4) 09/01/16 15:45 10/01/16 15:44 09/03/16 03:32 Ascorbic Acid (Vitamin C) 500 mg TID PO 09/02/16 09:00 10/02/16 08:59 09/03/16 09:19 Diphenhydramine HCl (Benadryl) 25 mg QHSP PRN PO INSOMNIA 09/02/16 14:15 10/02/16 14:14 09/02/16 22:56 Docusate Sodium (Colace) 100 mg BID PO 09/01/16 21:00 10/01/16 20:59 09/03/16 09:19 Ferrous Gluconate (Fergon) 324 mg TID PO 09/02/16 09:00 10/02/16 08:59 09/03/16 09:20 Magnesium Hydroxide (Milk Of Magnesia) 30 ml DAILYPRN PRN PO CONSTIPATION 09/01/16 15:45 10/01/16 15:44 09/02/16 09:46 Multivitamins (Theragram-M) 1 tab DAILY PO 09/02/16 09:00 10/02/16 08:59 09/03/16 09:19 Oxycodone/ Acetaminophen (Percocet 5mg/ 325mg Tablet) 1 tab Q4HP PRN PO MODERATE/SEVERE PAIN (PS 5-10) 09/01/16 15:45 09/08/16 15:44 09/02/16 09:47 Pantoprazole Sodium (Protonix) 40 mg DAILY PO 09/02/16 09:00 10/02/16 08:59 09/03/16 09:19 Polyethylene Glycol (Miralax) 1 pkt DAILY PRN PO CONSTIPATION 09/01/16 15:45 10/01/16 15:44 Senna (Senokot) 1 tab QHS PO 09/01/16 21:00 10/01/16 20:59 09/02/16 22:56 Vitamin D (Vitamin D) 1,000 units DAILY PO 09/02/16 09:00 10/02/16 08:59 09/03/16 09:20 PRINCESS BIRD MD Sep 03, 2016 11:43
[2016-09-03 14:00] VITALS: BP 121/85
[2016-09-03] MEDS ORDERED: WARFARIN SOD 5 MG TAB PO ONE (17:00)
[2016-09-03 20:00] VITALS: BP 113/56
[2016-09-03] MEDS: diphenhydrAMINE 25 MG CAP PO PRN (20:32)
[2016-09-03] MEDS: SENNA 8.6 MG TAB (SENOKOT) PO SCH (20:32)
[2016-09-04] MEDS: PERCOCET 5MG/325MG TAB PO PRN (05:54)
[2016-09-04 06:00] VITALS: BP 134/62
[2016-09-04 06:04] LABS: BASO % 0.3 % (0.0-1.0); EOS # 0.2 K/mm3 (0.0-0.50); LARGE UNSTAINED CELL # 0.1 K/mm3 (0.0-0.4); LARGE UNSTAINED CELL % 1.4 % (0.0-4.0); LYMPH # 1.8 K/mm3 (1.5-4.5); LYMPH % 19.1 % (24.0-44.0); MEAN CORPUSCULAR HEMOGLOBIN 30.7 pg (27.0-33.0); MONO # 0.5 K/mm3 (0.0-0.8); MONO % 5.5 % (0.0-5.0); NEUTROPHILS # 6.8 K/mm3 (1.8-7.7); NEUTROPHILS % 71.7 % (36.0-66.0); PLATELET COUNT, AUTOMATED 222 k/mm3 (150-450); RED CELL DISTRIBUTION WIDTH 14.2 % (11.5-14.5); WHITE BLOOD COUNT 9.5 K/mm3 (4.0-10.0)
[2016-09-04 06:18] LABS: INR 1.69
[2016-09-04 06:19] LABS: ANION GAP 8 MEQ/L (8-16); BLOOD UREA NITROGEN 15 MG/DL (7-18); CALCIUM LEVEL 8.2 MG/DL (8.8-10.2); CARBON DIOXIDE LEVEL 28 MEQ/L (21-32); CHLORIDE LEVEL 107 MEQ/L (98-107); CREATININE FOR GFR 0.94 MG/DL (0.55-1.02); GLOMERULAR FILTRATION RATE > 60.0 (>39); GLUCOSE, FASTING 96 MG/DL (83-110); POTASSIUM SERUM 3.7 MEQ/L (3.5-5.1); SODIUM LEVEL 143 MEQ/L (136-145)
[2016-09-04] MEDS: VITAMIN D 1,000 INTERNATIONAL UNITS TABLET PO SCH (08:54)
[2016-09-04] MEDS: DOCUSATE SODIUM 100 MG CAP PO SCH ×2 (08:54→21:16)
[2016-09-04] MEDS: ASCORBIC ACID 500 MG TAB PO SCH ×3 (08:55→21:16)
[2016-09-04] MEDS: FERROUS GLUCONATE 324 MG TAB PO SCH ×3 (08:55→21:16)
[2016-09-04] MEDS: MULTIVITAMINS/MINERALS THERAP 1 TAB PO SCH (08:55)
[2016-09-04] MEDS: PANTOPRAZOLE 40MG TAB (PROTONIX) PO SCH (08:55)
[2016-09-04] MEDS: ACETAMINOPHEN TAB 650MG DOSE (2X325MG) PO PRN ×2 (09:46→21:17)
[2016-09-04 14:00] VITALS: BP 124/59
[2016-09-04] MEDS ORDERED: WARFARIN SOD 3 MG TAB PO SCH (17:00)
[2016-09-04 20:00] VITALS: BP 120/58
[2016-09-04] MEDS: SENNA 8.6 MG TAB (SENOKOT) PO SCH (21:16)
[2016-09-04] MEDS: diphenhydrAMINE 25 MG CAP PO PRN (21:16)
[2016-09-05] MEDS: CALCIUM CARBONATE 500 MG CHEW U/D PO PRN ×3 (02:45→23:05)
[2016-09-05 06:00] VITALS: BP 101/59
[2016-09-05 06:40] LABS: INR 2.33
[2016-09-05] MEDS: DOCUSATE SODIUM 100 MG CAP PO SCH ×2 (09:06→20:54)
[2016-09-05] MEDS: ASCORBIC ACID 500 MG TAB PO SCH ×3 (09:06→20:53)
[2016-09-05] MEDS: PANTOPRAZOLE 40MG TAB (PROTONIX) PO SCH (09:06)
[2016-09-05] MEDS: FERROUS GLUCONATE 324 MG TAB PO SCH ×3 (09:06→20:53)
[2016-09-05] MEDS: VITAMIN D 1,000 INTERNATIONAL UNITS TABLET PO SCH (09:06)
[2016-09-05] MEDS: MULTIVITAMINS/MINERALS THERAP 1 TAB PO SCH (09:06)
[2016-09-05 14:00] VITALS: BP 129/68
[2016-09-05] MEDS: ACETAMINOPHEN TAB 650MG DOSE (2X325MG) PO PRN (16:37)
[2016-09-05 20:00] VITALS: BP 112/59
[2016-09-05] MEDS: diphenhydrAMINE 25 MG CAP PO PRN (20:53)
[2016-09-05] MEDS: SENNA 8.6 MG TAB (SENOKOT) PO SCH (20:54)
[2016-09-06 06:00] VITALS: BP 109/61
[2016-09-06 06:47] LABS: MEAN CORPUSCULAR HEMOGLOBIN 30.7 pg (27.0-33.0); MEAN CORPUSCULAR HGB CONC 33.2 g/dl (32.0-36.5); MEAN CORPUSCULAR VOLUME 92.3 fl (80.0-96.0); RED CELL DISTRIBUTION WIDTH 14.8 % (11.5-14.5); WHITE BLOOD COUNT 9.2 K/mm3 (4.0-10.0)
[2016-09-06 06:59] LABS: INR 1.98
[2016-09-06 07:02] LABS: ANION GAP 10 MEQ/L (8-16); BLOOD UREA NITROGEN 17 MG/DL (7-18); CALCIUM LEVEL 8.5 MG/DL (8.8-10.2); CARBON DIOXIDE LEVEL 26 MEQ/L (21-32); CHLORIDE LEVEL 104 MEQ/L (98-107); CREATININE FOR GFR 0.89 MG/DL (0.55-1.02); GLOMERULAR FILTRATION RATE > 60.0 (>39); GLUCOSE, FASTING 92 MG/DL (83-110); POTASSIUM SERUM 3.5 MEQ/L (3.5-5.1); SODIUM LEVEL 140 MEQ/L (136-145)
[2016-09-06] MEDS: PANTOPRAZOLE 40MG TAB (PROTONIX) PO SCH (08:57)
[2016-09-06] MEDS: FERROUS GLUCONATE 324 MG TAB PO SCH ×3 (08:57→20:52)
[2016-09-06] MEDS: MULTIVITAMINS/MINERALS THERAP 1 TAB PO SCH (08:57)
[2016-09-06] MEDS: ASCORBIC ACID 500 MG TAB PO SCH ×3 (08:57→20:52)
[2016-09-06] MEDS: PERCOCET 5MG/325MG TAB PO PRN (08:57)
[2016-09-06] MEDS: VITAMIN D 1,000 INTERNATIONAL UNITS TABLET PO SCH (08:57)
[2016-09-06] MEDS: DOCUSATE SODIUM 100 MG CAP PO SCH ×2 (08:57→20:52)
--- NOTE | 2016-09-06 12:21 | IPNPDOC ---
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 PAST MEDICAL HISTORY: Osteoporosis Hiatal hernia Gastroesophageal reflux disease Diverticulitis Gastric bleeding ulcer s/p transfusion Transfusion 2nd miscarriage PAST SURGICAL HISTORY: Tonsillectomy Toe surgery ALLERGIES: No known drug allergies MEDICATIONS: Coumadin daily Vitamin D 1000 units by mouth daily Ferrous gluconate 324 mg tid Vit C 500mg PO tid MiraLAX 1 packet by mouth daily Protonix 40 mg by mouth daily when necessary MVI 1 tab PO daily APAP 650 q4h prn Percocet 1 tab every 4 hours by mouth when necessary Colace 100 mg by mouth twice a day Senna 1 tab by mouth qhs Benadryl 25mg po qhs prn SUBJECTIVE: No complaints. Feels better since transfusion. No issues over the weekend. Denies any CP, SOB, vomiting, diaphoresis, C/D. VITAL SIGNS: Temperature 98.7F, pulse 86, respiratory rate 16, blood pressure 109/61, 97% saturation on room air PHYSICAL EXAMINATION: GENERAL: Well nourished, well developed, sitting up in chair, no acute distress. HEENT: Normocephalic, atraumatic. No facial droop. PERRL, EOMI CARDIOVASCULAR: S1, S2, regular rate. No left lower limb edema or calf tenderness. Diffuse mild right lower limb swelling. No right calf tenderness. LUNGS: Clear to auscultation, no wheezing rhonchi or rales. ABDOMEN: Soft, nontender, nondistended. Positive normoactive bowel sounds throughout. MUSCULOSKELETAL: MMT: 5/5 strength bilateral upper limbs in all major muscle groups. 3/5 left hip flexors, 5/5 left knee extension, flexion, 5/5 left dorsi flexion, plantar flexion and EHL. 3-/5 right hip flexors, 3/5 right knee extension, 4/5 right knee flexion, 5/5 right dorsiflexion, plantar flexion and EHL. NEUROLOGICAL: Alert and oriented x 3. It is all questions appropriately. Able to follow commands without difficulty. SKIN: No skin breakdown. LABORATORY DATA: 09/06/16: reviewed, see below 09/01/2016: WBC count 10.5, hemoglobin 8.5, hematocrit 24.9, platelets 157, sodium 141, potassium 3.8, chloride 107, carbon dioxide 24, BUN 14, creatinine 0.87, GFR greater than 60.0, glucose 94, calcium 7.4, PT 15.7, INR 1.24. IMAGING: X-ray of the pelvis (films and report reviewed, films reviewed with patient and family): 08/30/16: Comminuted right intertrochanteric femur fracture X-ray of the femur 08/31/2016(Films reviewed with patient and family): FUNCTIONAL STATUS, Premorbid: Independent with ADLs and ambulation. Drove regularly ASSESSMENT AND PLAN: 1. Right intertrochanteric comminuted femur fracture status post ORIF with resultant gait abnormality and dysfunctional ADLs: PWB right lower limb. Continue daily physical and occupational therapy. Rehabilitation nursing for bladder, bowel, medication management and wound care. 2. Anemia, acute blood loss + severe iron deficiency: Improved s/p transfusion 2u PRBCs 09/03/16. Continue iron supplementation. 3. DVT prophylaxis: Coumadin dose by ROSALEE Wyatt of the orthopedic service. Continue SCD and SUE hose. 4. Pain management: Adequate control. Continue acetaminophen along with Percocet on an as-needed basis. Continue intermittent ice. Medication adjustments as indicated. 5. Bladder: Reviewed UA, Ucx neg. 6. Leukocytosis/fever: resolved 7. Diet/malnutrition: Prealbumin low. Continue Ensure supplements. Regular diet. 8. Insomnia: Continue Benadryl prn / Vital Signs Vital Sign - Last 24 Hours 09/05/16 09/05/16 09/05/16 09/06/16 14:00 20:00 20:58 06:00 Temp 99.0 98.6 98.7 Pulse 86 84 86 Resp 18 18 18 B/P 129/68 112/59 109/61 Pulse Ox 98 99 97 O2 Delivery Room Air Room Air Room Air Room Air 09/06/16 09/06/16 09/06/16 08:57 09:00 09:27 Resp 16 16 O2 Delivery Room Air Laboratory Data CBC/BMP Laboratory Tests 09/06/16 06:15 Calcium Level 8.5 L, Red Blood Count 3.37 L, Mean Corpuscular Volume 92.3, Mean Corpuscular Hemoglobin 30.7, Mean Corpuscular Hemoglobin Concent 33.2, Red Cell Distribution Width 14.8 H Labs 24H Laboratory Tests 2 09/06/16 06:15: Anion Gap 10, Blood Urea Nitrogen 17, Creatinine 0.89, Sodium Level 140, Potassium Level 3.5, Chloride Level 104, Carbon Dioxide Level 26, Calcium Level 8.5L, Glomerular Filtration Rate > 60.0, Prothromb Time International Ratio 1.98 , Prothrombin Time 22.6H Microbiology Microbiology 09/02/16 Urine Culture - Final, Complete Allergies Allergies: Coded Allergies: ENVIROMENTAL (Unverified Allergy, Unknown, 08/30/16) Current Medications Current Medications Current Medications Medications (Trade) Dose Ordered Sig/Eula Route PRN Reason Start Time Stop Time Status Last Admin Dose Admin Acetaminophen (Tylenol) 650 mg Q4HP PRN PO MILD PAIN (PS 1-4) 09/01/16 15:45 10/01/16 15:44 09/05/16 16:37 Ascorbic Acid (Vitamin C) 500 mg TID PO 09/02/16 09:00 10/02/16 08:59 09/06/16 08:57 Calcium Carbonate (Tums) 500 mg TIDP PRN PO INDIGESTION 09/05/16 02:45 10/05/16 02:44 09/05/16 23:05 Diphenhydramine HCl (Benadryl) 25 mg QHSP PRN PO INSOMNIA 09/02/16 14:15 10/02/16 14:14 09/05/16 20:53 Docusate Sodium (Colace) 100 mg BID PO 09/01/16 21:00 10/01/16 20:59 09/06/16 08:57 Ferrous Gluconate (Fergon) 324 mg TID PO 09/02/16 09:00 10/02/16 08:59 09/06/16 08:57 Magnesium Hydroxide (Milk Of Magnesia) 30 ml DAILYPRN PRN PO CONSTIPATION 09/01/16 15:45 10/01/16 15:44 09/02/16 09:46 Multivitamins (Theragram-M) 1 tab DAILY PO 09/02/16 09:00 10/02/16 08:59 09/06/16 08:57 Oxycodone/ Acetaminophen (Percocet 5mg/ 325mg Tablet) 1 tab Q4HP PRN PO MODERATE/SEVERE PAIN (PS 5-10) 09/01/16 15:45 09/08/16 15:44 09/06/16 08:57 Pantoprazole Sodium (Protonix) 40 mg DAILY PO 09/02/16 09:00 10/02/16 08:59 09/06/16 08:57 Polyethylene Glycol (Miralax) 1 pkt DAILY PRN PO CONSTIPATION 09/01/16 15:45 10/01/16 15:44 Senna (Senokot) 1 tab QHS PO 09/01/16 21:00 10/01/16 20:59 09/04/16 21:16 Vitamin D (Vitamin D) 1,000 units DAILY PO 09/02/16 09:00 10/02/16 08:59 09/06/16 08:57 Warfarin Sodium (Coumadin) 6 mg 1T@17 PO 09/04/16 17:00 09/04/16 23:00 DC 09/04/16 16:11 PRINCESS BIRD MD Sep 06, 2016 12:21
[2016-09-06 14:00] VITALS: BP 113/53
[2016-09-06] MEDS ORDERED: WARFARIN SOD 2.5 MG TAB PO ONE (17:00)
[2016-09-06 20:00] VITALS: BP 109/56
[2016-09-06] MEDS: SENNA 8.6 MG TAB (SENOKOT) PO SCH (20:52)
[2016-09-06] MEDS: diphenhydrAMINE 25 MG CAP PO PRN (20:55)
[2016-09-07 06:00] VITALS: BP 109/59
[2016-09-07 06:52] LABS: INR 1.81
[2016-09-07] MEDS: PERCOCET 5MG/325MG TAB PO PRN ×3 (08:56→21:16)
[2016-09-07] MEDS: ASCORBIC ACID 500 MG TAB PO SCH ×3 (08:57→21:15)
[2016-09-07] MEDS: FERROUS GLUCONATE 324 MG TAB PO SCH ×3 (08:57→21:15)
[2016-09-07] MEDS: PANTOPRAZOLE 40MG TAB (PROTONIX) PO SCH (08:57)
[2016-09-07] MEDS: DOCUSATE SODIUM 100 MG CAP PO SCH ×2 (08:57→21:15)
[2016-09-07] MEDS: VITAMIN D 1,000 INTERNATIONAL UNITS TABLET PO SCH (08:57)
[2016-09-07] MEDS: MULTIVITAMINS/MINERALS THERAP 1 TAB PO SCH (08:57)
--- NOTE | 2016-09-07 12:24 | IPNPDOC ---
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 PAST MEDICAL HISTORY: Osteoporosis Hiatal hernia Gastroesophageal reflux disease Diverticulitis Gastric bleeding ulcer s/p transfusion Transfusion 2nd miscarriage PAST SURGICAL HISTORY: Tonsillectomy Toe surgery ALLERGIES: No known drug allergies MEDICATIONS: Coumadin daily Vitamin D 1000 units by mouth daily Ferrous gluconate 324 mg tid Vit C 500mg PO tid MiraLAX 1 packet by mouth daily Protonix 40 mg by mouth daily when necessary MVI 1 tab PO daily APAP 650 q4h prn Percocet 1 tab every 4 hours by mouth when necessary Colace 100 mg by mouth twice a day Senna 1 tab by mouth qhs Benadryl 25mg po qhs prn SUBJECTIVE: No complaints. Feels well. Has some right LL pain, but adequately controlled. Denies any CP, SOB, vomiting, diaphoresis, C/D. VITAL SIGNS: Temperature 98.3F, pulse 75, respiratory rate 16, blood pressure 109/59, 98% saturation on room air PHYSICAL EXAMINATION: GENERAL: Well nourished, well developed, sitting up in chair, no acute distress. HEENT: Normocephalic, atraumatic. No facial droop. PERRL, EOMI CARDIOVASCULAR: S1, S2, regular rate. No left lower limb edema or calf tenderness. Diffuse mild right lower limb swelling. No right calf tenderness. LUNGS: Clear to auscultation, no wheezing rhonchi or rales. ABDOMEN: Soft, nontender, nondistended. Positive normoactive bowel sounds throughout. MUSCULOSKELETAL: MMT: 5/5 strength bilateral upper limbs in all major muscle groups. 3/5 left hip flexors, 5/5 left knee extension, flexion, 5/5 left dorsi flexion, plantar flexion and EHL. 3-/5 right hip flexors, 3/5 right knee extension, 4/5 right knee flexion, 5/5 right dorsiflexion, plantar flexion and EHL. NEUROLOGICAL: Alert and oriented x 3. It is all questions appropriately. Able to follow commands without difficulty. SKIN: No skin breakdown. LABORATORY DATA: 09/06/16: reviewed, see below 09/01/2016: WBC count 10.5, hemoglobin 8.5, hematocrit 24.9, platelets 157, sodium 141, potassium 3.8, chloride 107, carbon dioxide 24, BUN 14, creatinine 0.87, GFR greater than 60.0, glucose 94, calcium 7.4, PT 15.7, INR 1.24. IMAGING: X-ray of the pelvis (films and report reviewed, films reviewed with patient and family): 08/30/16: Comminuted right intertrochanteric femur fracture X-ray of the femur 08/31/2016(Films reviewed with patient and family): FUNCTIONAL STATUS, Premorbid: Independent with ADLs and ambulation. Drove regularly ASSESSMENT AND PLAN: 1. Right intertrochanteric comminuted femur fracture status post ORIF with resultant gait abnormality and dysfunctional ADLs: PWB right lower limb. Patient making good progress. Continue daily physical and occupational therapy. Rehabilitation nursing for bladder, bowel, medication management and wound care. 2. Anemia, acute blood loss + severe iron deficiency: Stable s/p transfusion 2u PRBCs 09/03/16. Continue iron supplementation. 3. DVT prophylaxis: Coumadin dose by ROSALEE Wyatt of the orthopedic service. Continue SCD and SUE hose. 4. Pain management: Adequate control. Continue acetaminophen along with Percocet on an as-needed basis. Continue intermittent ice. 5. Bladder: Reviewed UA, Ucx neg. 6. Leukocytosis/fever: resolved 7. Diet/malnutrition: Prealbumin low. Continue Ensure supplements. Regular diet. 8. Insomnia: Continue Benadryl prn / Vital Signs Vital Sign - Last 24 Hours 09/06/16 09/06/16 09/06/16 09/07/16 14:00 20:00 20:30 06:00 Temp 98.9 98.5 98.3 Pulse 84 83 75 Resp 20 20 20 B/P 113/53 109/56 109/59 Pulse Ox 99 95 98 O2 Delivery Room Air Room Air 09/07/16 09/07/16 09/07/16 08:56 09:00 09:26 Resp 16 16 O2 Delivery Room Air Laboratory Data Labs 24H Laboratory Tests 2 09/07/16 06:18: Prothromb Time International Ratio 1.81, Prothrombin Time 21.1H Microbiology Microbiology 09/02/16 Urine Culture - Final, Complete Allergies Allergies: Coded Allergies: ENVIROMENTAL (Unverified Allergy, Unknown, 08/30/16) Current Medications Current Medications Current Medications Medications (Trade) Dose Ordered Sig/Eula Route PRN Reason Start Time Stop Time Status Last Admin Dose Admin Acetaminophen (Tylenol) 650 mg Q4HP PRN PO MILD PAIN (PS 1-4) 09/01/16 15:45 10/01/16 15:44 09/05/16 16:37 Ascorbic Acid (Vitamin C) 500 mg TID PO 09/02/16 09:00 10/02/16 08:59 09/07/16 08:57 Calcium Carbonate (Tums) 500 mg TIDP PRN PO INDIGESTION 09/05/16 02:45 10/05/16 02:44 09/05/16 23:05 Diphenhydramine HCl (Benadryl) 25 mg QHSP PRN PO INSOMNIA 09/02/16 14:15 10/02/16 14:14 09/06/16 20:55 Docusate Sodium (Colace) 100 mg BID PO 09/01/16 21:00 10/01/16 20:59 09/07/16 08:57 Ferrous Gluconate (Fergon) 324 mg TID PO 09/02/16 09:00 10/02/16 08:59 09/07/16 08:57 Magnesium Hydroxide (Milk Of Magnesia) 30 ml DAILYPRN PRN PO CONSTIPATION 09/01/16 15:45 10/01/16 15:44 09/02/16 09:46 Multivitamins (Theragram-M) 1 tab DAILY PO 09/02/16 09:00 10/02/16 08:59 09/07/16 08:57 Oxycodone/ Acetaminophen (Percocet 5mg/ 325mg Tablet) 1 tab Q4HP PRN PO MODERATE/SEVERE PAIN (PS 5-10) 09/01/16 15:45 09/08/16 15:44 09/07/16 08:56 Pantoprazole Sodium (Protonix) 40 mg DAILY PO 09/02/16 09:00 10/02/16 08:59 09/07/16 08:57 Polyethylene Glycol (Miralax) 1 pkt DAILY PRN PO CONSTIPATION 09/01/16 15:45 10/01/16 15:44 Senna (Senokot) 1 tab QHS PO 09/01/16 21:00 2/24/17 20:59 09/04/16 21:16 Vitamin D (Vitamin D) 1,000 units DAILY PO 09/02/16 09:00 10/02/16 08:59 09/07/16 08:57 Warfarin Sodium (Coumadin) 6 mg 1T@17 PO 09/04/16 17:00 09/04/16 23:00 DC 09/04/16 16:11 PRINCESS BIRD MD Sep 07, 2016 12:24
[2016-09-07 14:00] VITALS: BP 91/54
[2016-09-07] MEDS ORDERED: WARFARIN SOD 4 MG TAB PO ONE (17:00)
[2016-09-07 20:30] VITALS: BP 119/58
[2016-09-07] MEDS: SENNA 8.6 MG TAB (SENOKOT) PO SCH (21:15)
[2016-09-07] MEDS: diphenhydrAMINE 25 MG CAP PO PRN (21:15)
[2016-09-08 04:51] VITALS: BP 108/53
[2016-09-08 06:59] LABS: MEAN CORPUSCULAR HGB CONC 32.1 g/dl (32.0-36.5); MEAN CORPUSCULAR VOLUME 93.3 fl (80.0-96.0); RED CELL DISTRIBUTION WIDTH 13.6 % (11.5-14.5); WHITE BLOOD COUNT 8.2 K/mm3 (4.0-10.0)
[2016-09-08 07:02] LABS: INR 2.03
[2016-09-08 07:11] LABS: ANION GAP 7 MEQ/L (8-16); BLOOD UREA NITROGEN 24 MG/DL (7-18); CALCIUM LEVEL 8.9 MG/DL (8.8-10.2); CARBON DIOXIDE LEVEL 29 MEQ/L (21-32); CHLORIDE LEVEL 105 MEQ/L (98-107); CREATININE FOR GFR 0.84 MG/DL (0.55-1.02); GLOMERULAR FILTRATION RATE > 60.0 (>39); GLUCOSE, FASTING 94 MG/DL (83-110); MAGNESIUM LEVEL 2.1 MG/DL (1.8-2.4); POTASSIUM SERUM 4.1 MEQ/L (3.5-5.1); SODIUM LEVEL 141 MEQ/L (136-145)
[2016-09-08] MEDS: MULTIVITAMINS/MINERALS THERAP 1 TAB PO SCH (10:14)
[2016-09-08] MEDS: FERROUS GLUCONATE 324 MG TAB PO SCH ×3 (10:14→21:17)
[2016-09-08] MEDS: VITAMIN D 1,000 INTERNATIONAL UNITS TABLET PO SCH (10:14)
[2016-09-08] MEDS: DOCUSATE SODIUM 100 MG CAP PO SCH ×2 (10:15→21:17)
[2016-09-08] MEDS: PANTOPRAZOLE 40MG TAB (PROTONIX) PO SCH (10:15)
[2016-09-08] MEDS: ASCORBIC ACID 500 MG TAB PO SCH ×3 (10:15→21:17)
--- NOTE | 2016-09-08 11:54 | IPNPDOC ---
[employer] Progress Note PROGRESS NOTE DATE OF ADMISSION: 09/01/2016 DATE OF SERVICE: 09/08/2016 IDENTIFICATION STATEMENT: Patient is a 75-year-old woman status post ORIF for right comminuted intertrochanteric fracture admitted for comprehensive integrated inpatient rehabilitation. PAST MEDICAL HISTORY: Osteoporosis Hiatal hernia Gastroesophageal reflux disease Diverticulitis Gastric bleeding ulcer s/p transfusion Transfusion 2nd miscarriage PAST SURGICAL HISTORY: Tonsillectomy Toe surgery ALLERGIES: No known drug allergies MEDICATIONS: Coumadin daily Vitamin D 1000 units by mouth daily Ferrous gluconate 324 mg tid Vit C 500mg PO tid MiraLAX 1 packet by mouth daily Protonix 40 mg by mouth daily when necessary MVI 1 tab PO daily APAP 650 q4h prn Percocet 1 tab every 4 hours by mouth when necessary Colace 100 mg by mouth twice a day Senna 1 tab by mouth qhs Benadryl 25mg po qhs prn SUBJECTIVE: Patient w/o complaints. Feels good, pain adequately controlled. Denies any CP, SOB, vomiting, diaphoresis, C/D. VITAL SIGNS: Temperature 98.0F, pulse 75, respiratory rate 18, blood pressure 108/53, 99% saturation on room air PHYSICAL EXAMINATION: GENERAL: Well nourished, well developed, sitting up in chair, no acute distress. HEENT: Normocephalic, atraumatic. No facial droop. PERRL, EOMI CARDIOVASCULAR: S1, S2, regular rate. No left lower limb edema or calf tenderness. Diffuse mild right lower limb swelling. No right calf tenderness. LUNGS: Clear to auscultation, no wheezing rhonchi or rales. ABDOMEN: Soft, nontender, nondistended. Positive normoactive bowel sounds throughout. MUSCULOSKELETAL: MMT: 5/5 strength bilateral upper limbs in all major muscle groups. 3/5 left hip flexors, 5/5 left knee extension, flexion, 5/5 left dorsi flexion, plantar flexion and EHL. 3-/5 right hip flexors, 3/5 right knee extension, 4/5 right knee flexion, 5/5 right dorsiflexion, plantar flexion and EHL. NEUROLOGICAL: Alert and oriented x 3. It is all questions appropriately. Able to follow commands without difficulty. SKIN: No skin breakdown. LABORATORY DATA: 09/08/16: reviewed, see below 09/01/2016: WBC count 10.5, hemoglobin 8.5, hematocrit 24.9, platelets 157, sodium 141, potassium 3.8, chloride 107, carbon dioxide 24, BUN 14, creatinine 0.87, GFR greater than 60.0, glucose 94, calcium 7.4, PT 15.7, INR 1.24. IMAGING: X-ray of the pelvis (films and report reviewed, films reviewed with patient and family): 08/30/16: Comminuted right intertrochanteric femur fracture X-ray of the femur 08/31/2016(Films reviewed with patient and family): FUNCTIONAL STATUS, Premorbid: Independent with ADLs and ambulation. Drove regularly ASSESSMENT AND PLAN: 1. Right intertrochanteric comminuted femur fracture status post ORIF with resultant gait abnormality and dysfunctional ADLs: PWB right lower limb. Patient making good progress. Cleared for room privileges today. Continue daily physical and occupational therapy. Rehabilitation nursing for bladder, bowel, medication management and wound care. 2. Anemia, acute blood loss + severe iron deficiency: Stable s/p transfusion 2u PRBCs 09/03/16. Continue iron supplementation. 3. DVT prophylaxis: Coumadin dose by ROSALEE Wyatt of the orthopedic service. Continue SCD and SUE hose. 4. Pain management: Adequate control. Continue acetaminophen along with Percocet on an as-needed basis. Continue intermittent ice. 5. Bladder: Ucx neg. 6. Leukocytosis/fever: resolved 7. Diet/malnutrition: Prealbumin low. Continue Ensure supplements. Regular diet. 8. Insomnia: Resolved. Continue Benadryl prn / Vital Signs Vital Sign - Last 24 Hours 09/07/16 09/07/16 09/07/16 09/07/16 13:49 14:00 20:30 21:00 Temp 96.8 98.5 Pulse 82 77 Resp 16 22 18 B/P 91/54 119/58 Pulse Ox 96 97 O2 Delivery Room Air Room Air 09/07/16 09/07/16 09/08/16 09/08/16 21:16 22:00 04:51 07:45 Temp 98.0 Pulse 75 Resp 18 18 18 B/P 108/53 Pulse Ox 99 O2 Delivery Room Air Room Air Laboratory Data CBC/BMP Laboratory Tests 09/08/16 06:36 Calcium Level 8.9, Red Blood Count 3.46 L, Mean Corpuscular Volume 93.3, Mean Corpuscular Hemoglobin 30.0, Mean Corpuscular Hemoglobin Concent 32.1, Red Cell Distribution Width 13.6 Labs 24H Laboratory Tests 2 09/08/16 06:36: Anion Gap 7L, Blood Urea Nitrogen 24H, Creatinine 0.84, Sodium Level 141, Potassium Level 4.1, Chloride Level 105, Carbon Dioxide Level 29, Calcium Level 8.9, Glomerular Filtration Rate > 60.0, Magnesium Level 2.1, Prothromb Time International Ratio 2.03, Prothrombin Time 23.0H Microbiology Microbiology 09/02/16 Urine Culture - Final, Complete Allergies Allergies: Coded Allergies: ENVIROMENTAL (Unverified Allergy, Unknown, 08/30/16) Current Medications Current Medications Current Medications Medications (Trade) Dose Ordered Sig/Eula Route PRN Reason Start Time Stop Time Status Last Admin Dose Admin Acetaminophen (Tylenol) 650 mg Q4HP PRN PO MILD PAIN (PS 1-4) 09/01/16 15:45 10/01/16 15:44 09/05/16 16:37 Ascorbic Acid (Vitamin C) 500 mg TID PO 09/02/16 09:00 10/02/16 08:59 09/08/16 10:15 Calcium Carbonate (Tums) 500 mg TIDP PRN PO INDIGESTION 09/05/16 02:45 10/05/16 02:44 09/05/16 23:05 Diphenhydramine HCl (Benadryl) 25 mg QHSP PRN PO INSOMNIA 09/02/16 14:15 10/02/16 14:14 09/07/16 21:15 Docusate Sodium (Colace) 100 mg BID PO 09/01/16 21:00 10/01/16 20:59 09/08/16 10:15 Ferrous Gluconate (Fergon) 324 mg TID PO 09/02/16 09:00 10/02/16 08:59 09/08/16 10:14 Magnesium Hydroxide (Milk Of Magnesia) 30 ml DAILYPRN PRN PO CONSTIPATION 09/01/16 15:45 10/01/16 15:44 09/02/16 09:46 Multivitamins (Theragram-M) 1 tab DAILY PO 09/02/16 09:00 10/02/16 08:59 09/08/16 10:14 Oxycodone/ Acetaminophen (Percocet 5mg/ 325mg Tablet) 1 tab Q4HP PRN PO MODERATE/SEVERE PAIN (PS 5-10) 09/01/16 15:45 09/14/16 15:44 09/07/16 21:16 Pantoprazole Sodium (Protonix) 40 mg DAILY PO 09/02/16 09:00 10/02/16 08:59 09/08/16 10:15 Polyethylene Glycol (Miralax) 1 pkt DAILY PRN PO CONSTIPATION 09/01/16 15:45 10/01/16 15:44 Senna (Senokot) 1 tab QHS PO 09/01/16 21:00 10/01/16 20:59 09/07/16 21:15 Vitamin D (Vitamin D) 1,000 units DAILY PO 09/02/16 09:00 10/02/16 08:59 09/08/16 10:14 Warfarin Sodium (Coumadin) 6 mg 1T@17 PO 09/04/16 17:00 09/04/16 23:00 DC 09/04/16 16:11 PRINCESS BIRD MD Sep 08, 2016 11:54
[2016-09-08] MEDS: PERCOCET 5MG/325MG TAB PO PRN (11:57)
[2016-09-08 13:51] VITALS: BP 103/55
[2016-09-08] MEDS ORDERED: COUM2.5T11 PO (15:05)
[2016-09-08] MEDS ORDERED: PERCOCET PO (15:05)
[2016-09-08] MEDS ORDERED: FERR32TA PO (15:07)
[2016-09-08] MEDS: MIRALAX *UNIT DOSE* 17GM PACKET PO PRN (16:45)
[2016-09-08] MEDS ORDERED: WARFARIN SOD 2.5 MG TAB PO ONE (17:00)
[2016-09-08 20:00] VITALS: BP 114/53
[2016-09-08] MEDS: diphenhydrAMINE 25 MG CAP PO PRN (21:17)
[2016-09-08] MEDS: SENNA 8.6 MG TAB (SENOKOT) PO SCH (21:18)
[2016-09-09] MEDS: PERCOCET 5MG/325MG TAB PO PRN (03:42)
[2016-09-09 06:00] VITALS: BP 117/57
[2016-09-09 06:52] LABS: MEAN CORPUSCULAR HEMOGLOBIN 30.3 pg (27.0-33.0); MEAN CORPUSCULAR HGB CONC 32.7 g/dl (32.0-36.5); MEAN CORPUSCULAR VOLUME 92.8 fl (80.0-96.0); RED CELL DISTRIBUTION WIDTH 13.7 % (11.5-14.5); WHITE BLOOD COUNT 8.8 K/mm3 (4.0-10.0)
[2016-09-09 06:55] LABS: INR 2.13
[2016-09-09 07:09] LABS: ANION GAP 8 MEQ/L (8-16); BLOOD UREA NITROGEN 19 MG/DL (7-18); CALCIUM LEVEL 8.3 MG/DL (8.8-10.2); CARBON DIOXIDE LEVEL 28 MEQ/L (21-32); CHLORIDE LEVEL 105 MEQ/L (98-107); CREATININE FOR GFR 0.83 MG/DL (0.55-1.02); GLOMERULAR FILTRATION RATE > 60.0 (>39); GLUCOSE, FASTING 93 MG/DL (83-110); POTASSIUM SERUM 4.1 MEQ/L (3.5-5.1); SODIUM LEVEL 141 MEQ/L (136-145)
[2016-09-09] MEDS ORDERED: VITA500T88 PO (08:41)
[2016-09-09] MEDS: PANTOPRAZOLE 40MG TAB (PROTONIX) PO SCH (09:24)
[2016-09-09] MEDS: MULTIVITAMINS/MINERALS THERAP 1 TAB PO SCH (09:24)
[2016-09-09] MEDS: VITAMIN D 1,000 INTERNATIONAL UNITS TABLET PO SCH (09:24)
[2016-09-09] MEDS: FERROUS GLUCONATE 324 MG TAB PO SCH (09:24)
[2016-09-09] MEDS: MIRALAX *UNIT DOSE* 17GM PACKET PO PRN (09:24)
[2016-09-09] MEDS: DOCUSATE SODIUM 100 MG CAP PO SCH (09:24)
[2016-09-09] MEDS: ASCORBIC ACID 500 MG TAB PO SCH (09:24)
--- NOTE | 2016-09-09 09:31 | DS.PDOC ---
Network Security Consultant Discharge Note DISCHARGE SUMMARY DATE OF ADMISSION: 09/01/2016 DATE OF DISCHARGE: 09/09/2016 DISCHARGE DIAGNOSES 1. Right intertrochanteric comminuted femur fracture status post ORIF with resultant gait abnormality and dysfunctional ADLs, PWB right lower limb. 2. Anemia (acute blood loss + severe iron deficiency) s/p transfusion 3. Malnutrition 4. Insomnia IDENTIFICATION STATEMENT: Patient is a 75-year-old woman status post ORIF for right comminuted intertrochanteric fracture admitted for comprehensive integrated inpatient rehabilitation. PAST MEDICAL HISTORY: Osteoporosis Hiatal hernia Gastroesophageal reflux disease Diverticulitis Gastric bleeding ulcer s/p transfusion Transfusion 2nd miscarriage PAST SURGICAL HISTORY: Tonsillectomy Toe surgery HOSPITAL COURSE The patient underwent daily physical and occupational therapy. She was maintained on PWB right LL. She tolerated her therapy sessions well and made progressive gains. Surgical site was monitored periodically and noted to be healing well. On she was deemed stable for discharge home with HHS. Other issues addressed while on the rehabilitation unit are outlined as follows: 1. Anemia, acute blood loss + severe iron deficiency: S/p transfusion 2u PRBCs 09/03/16 with improved clinical status. Started on iron supplementation. Hgb stable therafter. 2. DVT prophylaxis: Coumadin dose by ROSALEE Wyatt of the orthopedic service. Maintained SCD and SUE hose. 3. Pain management: Adequate control. Maintained on acetaminophen and Percocet on an as-needed basis. Was using from 1-3 tabs Percocet. Provided with intermittent ice. 4. Leukocytosis/fever: UCx done and negative. Resolved 5. Malnutrition: Prealbumin low so provided with Ensure supplements. 6. Insomnia: Resolved with Benadryl prn at bedtime VITAL SIGNS: Temperature 97.6F, pulse 70, respiratory rate 18, blood pressure 117/57, 96% saturation on room air PHYSICAL EXAMINATION: GENERAL: Well nourished, well developed, sitting up in chair, no acute distress. HEENT: Normocephalic, atraumatic. No facial droop. PERRL, EOMI CARDIOVASCULAR: S1, S2, regular rate. No left lower limb edema or calf tenderness. Diffuse mild right lower limb swelling. No right calf tenderness. LUNGS: Clear to auscultation, no wheezing rhonchi or rales. ABDOMEN: Soft, nontender, nondistended. Positive normoactive bowel sounds throughout. MUSCULOSKELETAL: MMT: 5/5 strength bilateral upper limbs in all major muscle groups. 3/5 left hip flexors, 5/5 left knee extension, flexion, 5/5 left dorsi flexion, plantar flexion and EHL. 3-/5 right hip flexors, 3/5 right knee extension, 4/5 right knee flexion, 5/5 right dorsiflexion, plantar flexion and EHL. NEUROLOGICAL: Alert and oriented x 3. It is all questions appropriately. Able to follow commands without difficulty. SKIN: No skin breakdown. Right hip/thigh surgical site with foam and optifoam dressings, scant drainage visible. LABORATORY DATA: 09/09/16: reviewed, see below IMAGING: X-ray of the pelvis (films and report reviewed, films reviewed with patient and family): 08/30/16: Comminuted right intertrochanteric femur fracture X-ray of the femur 08/31/2016(Films reviewed with patient and family): ALLERGIES: No known drug allergies MEDICATIONS: Coumadin 2.5mg daily until 10/02/16 Vitamin D 1000 units by mouth daily Ferrous gluconate 324 mg tid Vit C 500mg PO tid Protonix 40 mg by mouth daily when necessary MVI 1 tab PO daily APAP 650 q4h prn Percocet 1 tab every 4 hours by mouth for severe pain Colace 100 mg by mouth twice a day prn Senna 1 tab by mouth qhs prn Benadryl 25mg po qhs prn DISCHARGE DISPOSITION: 1. The patient discharge home with family and HHS 2. The patient discharged in stable condition 3. Discharged with HHS to include RN, PT, OT and bath aide. PT/INR q Mon & Thur 4. Equipment: 2WW, commode and tub bench 5. Post discharge follow-up medical appointments: PCP 1-3 weeks, Ortho (Duyen ~ 09/15/16). / Vital Signs/I&O Vital Sign - Last 24 Hours 09/08/16 09/08/16 09/08/16 09/08/16 11:57 12:27 13:51 20:00 Temp 98.1 Pulse 74 Resp 18 18 B/P 103/55 Pulse Ox 96 O2 Delivery Room Air Room Air Room Air Room Air 09/08/16 09/09/16 09/09/16 09/09/16 20:00 03:42 04:39 06:00 Temp 98.5 97.6 Pulse 80 70 Resp 19 18 18 18 B/P 114/53 117/57 Pulse Ox 99 96 O2 Delivery Room Air Room Air I&O- Last 24 Hours up to 6 AM 09/09/16 06:00 Intake Total 720 ml Balance 720 ml Laboratory Data CBC/BMP Laboratory Tests 09/08/16 06:36 Calcium Level 8.9, Red Blood Count 3.46 L, Mean Corpuscular Volume 93.3, Mean Corpuscular Hemoglobin 30.0, Mean Corpuscular Hemoglobin Concent 32.1, Red Cell Distribution Width 13.6 09/09/16 06:21 Calcium Level 8.3 L, Red Blood Count 3.30 L, Mean Corpuscular Volume 92.8, Mean Corpuscular Hemoglobin 30.3, Mean Corpuscular Hemoglobin Concent 32.7, Red Cell Distribution Width 13.7 Labs 48H Laboratory Tests 09/08/16 06:36: Anion Gap 7L, Blood Urea Nitrogen 24H, Creatinine 0.84, Sodium Level 141, Potassium Level 4.1, Chloride Level 105, Carbon Dioxide Level 29, Calcium Level 8.9, Fasting Glucose 94, Glomerular Filtration Rate > 60.0, White Blood Count 8.2, Red Blood Count 3.46L, Hemoglobin 10.4L, Hematocrit 32.3L, Mean Corpuscular Volume 93.3, Mean Corpuscular Hemoglobin 30.0, Mean Corpuscular Hemoglobin Concent 32.1, Red Cell Distribution Width 13.6, Platelet Count 467H, Magnesium Level 2.1, Prothromb Time International Ratio 2.03, Prothrombin Time 23.0H 09/09/16 06:20: Prothromb Time International Ratio 2.13, Prothrombin Time 23.9H 09/09/16 06:21: Anion Gap 8, Blood Urea Nitrogen 19H, Creatinine 0.83, Sodium Level 141, Potassium Level 4.1, Chloride Level 105, Carbon Dioxide Level 28, Calcium Level 8.3L, Fasting Glucose 93, Glomerular Filtration Rate > 60.0, White Blood Count 8.8, Red Blood Count 3.30L, Hemoglobin 10.0L, Hematocrit 30.6L, Mean Corpuscular Volume 92.8, Mean Corpuscular Hemoglobin 30.3, Mean Corpuscular Hemoglobin Concent 32.7, Red Cell Distribution Width 13.7, Platelet Count 440, Prealbumin 17.4L Microbiology Microbiology 09/02/16 Urine Culture - Final, Complete Medications Medications Current Medications Medications (Trade) Dose Ordered Sig/Eula Route PRN Reason Start Time Stop Time Status Last Admin Dose Admin Acetaminophen (Tylenol) 650 mg Q4HP PRN PO MILD PAIN (PS 1-4) 09/01/16 15:45 10/01/16 15:44 09/05/16 16:37 Ascorbic Acid (Vitamin C) 500 mg TID PO 09/02/16 09:00 10/02/16 08:59 09/09/16 09:24 Calcium Carbonate (Tums) 500 mg TIDP PRN PO INDIGESTION 09/05/16 02:45 10/05/16 02:44 09/05/16 23:05 Diphenhydramine HCl (Benadryl) 25 mg QHSP PRN PO INSOMNIA 09/02/16 14:15 10/02/16 14:14 09/08/16 21:17 Docusate Sodium (Colace) 100 mg BID PO 09/01/16 21:00 10/01/16 20:59 09/09/16 09:24 Ferrous Gluconate (Fergon) 324 mg TID PO 09/02/16 09:00 10/02/16 08:59 09/09/16 09:24 Magnesium Hydroxide (Milk Of Magnesia) 30 ml DAILYPRN PRN PO CONSTIPATION 09/01/16 15:45 10/01/16 15:44 09/02/16 09:46 Multivitamins (Theragram-M) 1 tab DAILY PO 09/02/16 09:00 10/02/16 08:59 09/09/16 09:24 Oxycodone/ Acetaminophen (Percocet 5mg/ 325mg Tablet) 1 tab Q4HP PRN PO MODERATE/SEVERE PAIN (PS 5-10) 09/01/16 15:45 09/14/16 15:44 09/09/16 03:42 Pantoprazole Sodium (Protonix) 40 mg DAILY PO 09/02/16 09:00 10/02/16 08:59 09/09/16 09:24 Polyethylene Glycol (Miralax) 1 pkt DAILY PRN PO CONSTIPATION 09/01/16 15:45 10/01/16 15:44 09/09/16 09:24 Senna (Senokot) 1 tab QHS PO 09/01/16 21:00 10/01/16 20:59 09/07/16 21:15 Vitamin D (Vitamin D) 1,000 units DAILY PO 09/02/16 09:00 10/02/16 08:59 09/09/16 09:24 Warfarin Sodium (Coumadin) 6 mg 1T@17 PO 09/04/16 17:00 09/04/16 23:00 DC 09/04/16 16:11 Scheduled Ascorbic Acid (Vitamin C) 500 Mg Tab 500 MG PO TID Biotin (Vitamin H) (Biotin) 1,000 Mcg Tab 1,000 MCG PO DAILY (Reported) Calcium (Calcium) 600 Mg Tab 600 MG PO BID (Reported) Cholecalciferol (Vitamin D) 1,000 Unit Tab 1,000 UNIT PO DAILY (Reported) Docusate Sodium (Colace) 100 Mg Cap 100 MG PO BID Ferrous Gluconate (Ferrous Gluconate) 324 Mg Tab 324 MG PO TID Fish Oil (Fish Oil) 1,000 Mg Cap 1,000 MG PO BID (Reported) Multivitamins *[facility] STOCKED* (Thera M Plus *[facility] STOCKED*) 1 Tab Tab 1 TAB PO DAILY (Reported) Warfarin Sod (Coumadin) 2.5 Mg Tab 2.5 MG PO DAILY take 2.5mg daily unless instructed otherwise by [facility]. Take until 10/02/16. Scheduled PRN Oxycodone/Acetaminophen (Percocet 5MG/325MG Tablet) 1 Tab Tab 1 TAB PO Q4HP PRN PRN severe pain Pantoprazole Sodium (Pantoprazole Sodium) 40 Mg Tab 40 MG PO DAILY PRN PRN HEARTBURN (Reported) Allergies Coded Allergies: ENVIROMENTAL (Unverified Allergy, Unknown, 08/30/16) PRINCESS BIRD MD Sep 09, 2016 09:31
== END 2016-09-09 12:52 | disposition home health service (06) | DRG 560 ==
LOC: M PM&R 15:55
PROVIDERS: ADMIT Physical Medicine & Rehabilitation; ATTEND Physical Medicine & Rehabilitation
PROC: 30233N1 Transfusion of Nonautologous Red Blood Cells into Peripheral Vein, Percutaneous Approach (ICD-10-PCS; principal; 2016-09-03)
DX: S72.141D Displaced intertrochanteric fracture of right femur, subsequent encounter for closed fracture with routine healing (principal); D62 Acute posthemorrhagic anemia; E46 Unspecified protein-calorie malnutrition; K63.3 Ulcer of intestine; K92.2 Gastrointestinal hemorrhage, unspecified; R11.0 Nausea; R42 Dizziness and giddiness; M81.0 Age-related osteoporosis without current pathological fracture; K44.9 Diaphragmatic hernia without obstruction or gangrene; K21.9 Gastro-esophageal reflux disease without esophagitis; K57.30 Diverticulosis of large intestine without perforation or abscess without bleeding; D50.9 Iron deficiency anemia, unspecified; G47.00 Insomnia, unspecified; D72.829 Elevated white blood cell count, unspecified; R50.9 Fever, unspecified; Z79.01 Long term (current) use of anticoagulants; Z79.891 Long term (current) use of opiate analgesic; Z79.899 Other long term (current) drug therapy; W18.09XD Striking against other object with subsequent fall, subsequent encounter; Y92.9 Unspecified place or not applicable; Y93.9 Activity, unspecified; Y99.9 Unspecified external cause status

== ENCOUNTER → 2016-09-13 | Outpatient (REF) | payer MEDICARE ==
[~2016-09-13] MED LIST changes: +COLA100C PO; +COUM1TAB17 PO; +COUM2.5T11 PO; +FERR32TA PO; +PERCOCET PO
[2016-09-13 15:24] LABS: INR 1.38
== END ==
LOC: M SHH 15:04
PROVIDERS: ATTEND Physical Medicine & Rehabilitation
DX: Z79.01 Long term (current) use of anticoagulants (principal)

== ENCOUNTER → 2016-09-16 | Outpatient (REF) | payer MEDICARE ==
[2016-09-16 12:43] LABS: INR 1.51
== END ==
LOC: M SHH 12:08
PROVIDERS: ATTEND Physical Medicine & Rehabilitation
DX: Z79.01 Long term (current) use of anticoagulants (principal)

== ENCOUNTER → 2016-09-20 | Outpatient (REF) | payer MEDICARE ==
[2016-09-20 13:50] LABS: INR 1.24
== END | disposition home or self-care (01) ==
LOC: M LAB REF 12:46
PROVIDERS: ATTEND Internal Medicine
DX: Z79.01 Long term (current) use of anticoagulants (principal)

== ENCOUNTER → 2016-09-23 | Outpatient (REF) | payer MEDICARE ==
[2016-09-23 15:12] LABS: INR 1.54
== END ==
LOC: M SHH 14:41
PROVIDERS: ATTEND Physical Medicine & Rehabilitation
DX: Z79.01 Long term (current) use of anticoagulants (principal)

== ENCOUNTER → 2016-09-27 | Outpatient (REF) | payer MEDICARE ==
[2016-09-27 15:50] LABS: INR 2.25
== END ==
LOC: M SHH 14:59
PROVIDERS: ATTEND Physical Medicine & Rehabilitation
DX: Z79.01 Long term (current) use of anticoagulants (principal)

== ENCOUNTER → 2016-10-19 | Outpatient (REF) | payer MEDICARE ==
[2016-10-19 09:55] LABS: MEAN CORPUSCULAR HEMOGLOBIN 31.7 pg (27.0-33.0); MEAN CORPUSCULAR HGB CONC 33.2 g/dl (32.0-36.5); MEAN CORPUSCULAR VOLUME 95.6 fl (80.0-96.0); WHITE BLOOD COUNT 5.3 K/mm3 (4.0-10.0)
== END ==
LOC: M LAB REF 09:25
PROVIDERS: ATTEND Internal Medicine
DX: E03.9 Hypothyroidism, unspecified (principal); E78.00 Pure hypercholesterolemia, unspecified

== ENCOUNTER → 2016-11-25 | Outpatient (CLI) | payer MEDICARE ==
[~2016-11-25] MED LIST changes: -COLA100C PO; +COLA100C3 PO; +E-Z-GAS II EFFERVESCENT PACKET (SODIUM BICARB./CITRIC ACID/SIMETHICONE) As Ordered ONE; +E-Z-HD 98% w/w 340GM SUSP BTL As Ordered ONE; +E-Z-PAQUE 96% w/w SUSP 176GM BTL As Ordered ONE
--- NOTE | 2016-11-25 17:01 | REP ---
ESOPHAGRAM, AIR CONTRAST: The procedure was performed under the direct supervision of Dr. Coronado. The images were reviewed with Dr. Coronado. A single view PA chest x-ray is submitted as a philosophy instructor film. The superior mediastinal structures are midline. The heart size is within normal limits. In the left perihilar region there is a calcific density which is benign in appearance. Liquid barium and gas-producing granules were given in the erect position as well as liquid barium in the prone oblique position in order to perform a double-contrast esophagram examination. The oral and pharyngeal stage of deglutition are unremarkable. Esophageal transport is prompt and efficient and there is no esophagitis, stricture, mucosal ring, or hiatal hernia. Gastroesophageal reflux is not demonstrated on this examination. IMPRESSION: Essentially unremarkable double contrast esophagram examination. 1 minute and 3 seconds of fluoroscopic time was utilized for this procedure. Reviewed by VINOD Kingston 11/26/2016 08:49 AEdited and Signed by Chetan Coronado MD 11/26/2016 12:46 P
== END ==
LOC: M RAD 09:07
PROVIDERS: ATTEND Internal Medicine Gastroenterology
DX: R13.10 Dysphagia, unspecified (principal); K21.9 Gastro-esophageal reflux disease without esophagitis

== ENCOUNTER → 2016-12-09 | Outpatient (CLI) | payer MEDICARE ==
[~2016-12-09] MED LIST changes: -E-Z-GAS II EFFERVESCENT PACKET (SODIUM BICARB./CITRIC ACID/SIMETHICONE) As Ordered ONE; -E-Z-HD 98% w/w 340GM SUSP BTL As Ordered ONE; -E-Z-PAQUE 96% w/w SUSP 176GM BTL As Ordered ONE
--- NOTE | 2016-12-09 15:07 | REPMRS ---
Patient History The patient states she has not had a clinical breast exam in over a year. Patient is postmenopausal. No known family history of cancer. Taking estrogen for 2 years 4 months. Digital Woman Screen Mammo: December 09, 2016 - Exam #: [id number] Bilateral CC and MLO view(s) were taken. Technologist: Cecelia Wolff, Technologist Prior study comparison: December 09, 2015, digital woman screen mammo performed at [facility] to [facility]. December 03, 2014, digital woman screen mammo performed at [facility] to [facility]. FINDINGS: There are scattered fibroglandular densities. There has been no change in the appearance of the mammogram from the prior studies. There is a mild amount of residual fibroglandular tissue which is fairly symmetric. There is no interval development of dominant mass, architectural distortion, or clustered microcalcification suggestive of malignancy. ASSESSMENT: BI-RADS/ACR category 1 mammogram. Negative. Recommendation Routine screening mammogram in 1 year (for women over age 40). This mammogram was interpreted with the aid of an FDA-approved computer-aided dectection system. Electronically Signed By: Dayday Johnson MD 12/09/16 [id number]
== END ==
LOC: M WHC 13:49
PROVIDERS: ATTEND Internal Medicine
DX: Z12.31 Encounter for screening mammogram for malignant neoplasm of breast (principal)

== ENCOUNTER → 2017-12-13 | Outpatient (CLI) | payer MEDICARE | LOC: M WHC 14:22 | DX: Z12.31 Encounter for screening mammogram for malignant neoplasm of breast (principal) | CPT/HCPCS: 77067 ==

== ENCOUNTER → 2018-12-26 | Outpatient (CLI) | payer MEDICARE ==
[~2018-12-26] MED LIST changes: -BIOT10005 PO; +BIOT10008 PO; -CALC600T10 PO; +CALC600T31 PO; -COLA100C3 PO; +COLA100C5 PO; -COUM2.5T11 PO; +COUM2.5T17 PO; -PANT40TA2 PO; +PANT40TA3 PO
--- NOTE | 2018-12-26 14:57 | REPMRS ---
Patient History The patient states she has not had a clinical breast exam in over a year. No known family history of cancer. Took estrogen for 2 years 4 months. 3D TOMOSYNTHESIS WAS PERFORMED. Digital Woman Screen Mammo: December 26, 2018 - Exam #: [id number] Bilateral CC and MLO view(s) were taken. Technologist: Mariam Casanova, Technologist Prior study comparison: December 13, 2017, digital woman screen mammo performed at [facility]. December 09, 2016, digital woman screen mammo performed at [facility]. FINDINGS: There are scattered fibroglandular densities. There has been no change in the appearance of the mammogram from the prior studies. There is a mild amount of residual fibroglandular tissue which is fairly symmetric. There is no interval development of dominant mass, architectural distortion, or clustered microcalcification suggestive of malignancy. Assessment: BI-RADS/ACR category 1 mammogram. Negative Mammogram. Recommendation Routine screening mammogram in 1 year (for women over age 40). This mammogram was interpreted with the aid of an FDA-approved computer-aided dectection system. Electronically Signed By: Dayday Johnson MD 12/26/18 [id number]
== END ==
LOC: M WHC 13:53
PROVIDERS: ATTEND Internal Medicine
DX: Z12.31 Encounter for screening mammogram for malignant neoplasm of breast (principal)

== ENCOUNTER → 2020-01-01 | Outpatient (CLI) | payer MEDICARE ==
--- NOTE | 2020-01-01 15:23 | REPMRS ---
Patient History The patient states she had a clinical breast exam in August 2019. No known family history of cancer. Took estrogen for 2 years 4 months. Digital Woman Screen Mammo: January 01, 2020 - Exam #: [id number] Bilateral CC and MLO view(s) were taken. Technologist: Senait Sanchez, Technologist Prior study comparison: December 26, 2018, bilateral digital woman screen mammo performed at [facility]. December 13, 2017, digital woman screen mammo performed at [facility]. December 09, 2016, digital woman screen mammo performed at [facility]. FINDINGS: There are scattered fibroglandular densities. The Volpara volumetric breast density category is:B. There has been no change in the appearance of the mammogram from the prior studies. There is a mild amount of scattered fibroglandular density which is fairly symmetric. There is no interval development of dominant mass, architectural distortion, or grouped microcalcification suggestive of malignancy. 3-D tomosynthesis shows no additional findings. Assessment: BI-RADS/ACR category 1 mammogram. Negative Mammogram. Recommendation Routine screening mammogram of both breasts in 1 year (for women over age 40). This patient's Lifetime Breast Cancer Risk is estimated at 1.2 %. This mammogram was interpreted with the aid of an FDA-approved computer-aided dectection system. Electronically Signed By: Stephane Coronado MD 01/01/20 [id number]
== END ==
LOC: M WHC 13:48
PROVIDERS: ATTEND Internal Medicine
DX: Z12.31 Encounter for screening mammogram for malignant neoplasm of breast (principal)

== ENCOUNTER → 2020-09-03 | Outpatient (REF) | payer MEDICARE ==
[~2020-09-03] MED LIST changes: +PANT40TA29 PO; -PANT40TA3 PO
[2020-09-04 17:19] LABS: ENDOMYSIAL ABY IgA Negative (Negative); TISSUE TRANSGLUTAMINASE IgA <2 U/mL (0-3)
== END ==
LOC: M LAB REF 12:03
PROVIDERS: ATTEND Internal Medicine
DX: K31.89 Other diseases of stomach and duodenum (principal); K21.9 Gastro-esophageal reflux disease without esophagitis; K59.00 Constipation, unspecified

== ENCOUNTER → 2020-09-23 | Outpatient (REF) | payer MEDICARE ==
[2020-09-23 16:56] LABS: C REACTIVE PROTEIN QUANTITATIV 0.3 MG/DL (0.00-0.30)
[2020-09-25 15:11] LABS: ANTI DOUBLE STRAND-DNA AB <1 IU/mL (0-9); ANTINUCLEAR ANTIBODIES DIRECT Positive (Negative); Lyme Disease IgG/IgM Antibodie <0.91 ISR (0.00-0.90); Lyme Disease IgM Ab Quantitati <0.80 index (0.00-0.79); RNP ANTIBODIES 0.4 AI (0.0-0.9); SJOGREN'S ANTI SS-A >8.0 AI (0.0-0.9); SJOGREN'S ANTI SS-B 0.4 AI (0.0-0.9); SMITH ANTIBODIES <0.2 AI (0.0-0.9)
== END ==
LOC: M LAB REF 16:18
PROVIDERS: ATTEND Internal Medicine
DX: G31.84 Mild cognitive impairment of uncertain or unknown etiology (principal); R44.0 Auditory hallucinations

== ENCOUNTER → 2020-11-19 | Outpatient (CLI) | payer MEDICARE ==
--- NOTE | 2020-11-19 11:51 | REP ---
INDICATION: EFFUSION,UNSPECIFIED JOINT, LABS 1ST. COMPARISON: None. TECHNIQUE: Four views each wrist FINDINGS: Right wrist: Degenerative changes are seen involving the 1st carpal metacarpal joint with irregular joint space narrowing, subchondral sclerosis, and marginal osteophytosis. Subtle calcifications are seen in the region of the triangular fibrocartilage complex. A tiny unicameral bone cyst is seen in the ulnar styloid. There is no evidence of an acute fracture, dislocation, or subluxation. Left wrist: Degenerative changes are seen involving the 1st carpometacarpal joint space with irregular joint space narrowing, subchondral sclerosis, and marginal osteophytosis. A small ossific density is seen just lateral to the lateral margin of the trapezium possibly representing an old injury. There is no evidence of an acute fracture. IMPRESSION: Bilateral chronic changes as described above. <Electronically signed by Ambrosio Nath > 11/19/20 [id number]
[2020-11-19 11:54] LABS: BASO # 0.1 10^3/uL (0.0-0.2); BASO % 1.3 % (0.0-1.0); EOS # 0.2 10^3/uL (0.0-0.5); EOS % 2.6 % (0.0-3.0); HEMOGLOBIN 11.5 g/dl (12.0-15.5); LYMPH # 2.2 10^3/uL (1.5-5.0); LYMPH % 36.7 % (24.0-44.0); MEAN CORPUSCULAR HEMOGLOBIN 31.6 pg (27.0-33.0); MEAN CORPUSCULAR HGB CONC 32.9 g/dl (32.0-36.5); MEAN CORPUSCULAR VOLUME 96.2 fl (80.0-96.0); MONO # 0.6 10^3/uL (0.0-0.8); MONO % 9.9 % (2.0-8.0); NEUTROPHILS % 49.2 % (36.0-66.0); PLATELET COUNT, AUTOMATED 311 10^3/uL (150-450); RED BLOOD COUNT 3.64 10^6/uL (4.00-5.40); WHITE BLOOD COUNT 6.1 10^3/uL (4.0-10.0)
[2020-11-19 12:20] LABS: ERYTHROCYTE SEDIMENTATION RATE 43 mm/hr (0-30)
[2020-11-19 12:23] LABS: CREATININE,RANDOM URINE 41.2 MG/DL; TOTAL PROTEIN,RANDOM URINE 12.4 MG/DL (0.0-12.0)
[2020-11-19 12:28] LABS: RHEUMATOID FACTOR QUANT < 10.0 IU/ML (<15.0)
[2020-11-19 13:14] LABS: APPEARANCE, URINE CLEAR (CLEAR); BACTERIA, URINE AUTO NEGATIVE (NEGATIVE); BILIRUBIN, URINE AUTO NEGATIVE (NEGATIVE); BLOOD, URINE BLOOD NEGATIVE (NEGATIVE); COLOR, URINE YELLOW (YELLOW); GLUCOSE, URINE (UA) AUTO NEGATIVE (NEGATIVE); KETONE, URINE AUTO NEGATIVE (NEGATIVE); LEUKOCYTE ESTERASE, URINE AUTO TRACE (NEGATIVE); MUCUS, URINE SMALL (NEGATIVE); NITRITE, URINE AUTO NEGATIVE (NEGATIVE); PROTEIN, URINE AUTO NEGATIVE (NEGATIVE); RBC, URINE AUTO 1 /HPF (0-3); SPECIFIC GRAVITY URINE AUTO 1.009 (1.002-1.035); SQUAMOUS EPITHELIAL CELL UR AU 2 /HPF (0-6); UROBILINOGEN, URINE AUTO 0.2 mg/dL (0.0-2.0); WBC, URINE AUTO 1 /HPF (0-3)
[2020-11-20 07:42] LABS: COMPLEMENT C3 143 MG/DL (90-180); COMPLEMENT C4 35 MG/DL (10-40)
== END ==
LOC: M LAB 10:39
PROVIDERS: ATTEND Internal Medicine
DX: R76.8 Other specified abnormal immunological findings in serum (principal); M25.40 Effusion, unspecified joint

== ENCOUNTER → 2021-01-01 | Outpatient (CLI) | payer MEDICARE ==
--- NOTE | 2021-01-01 13:50 | REPMRS ---
Patient History The patient states she has not had a clinical breast exam in over a year. No known family history of cancer. Took estrogen for 2 years 4 months. Patient states no breast complaints. Patient has signed the MRS history sheet. Digital Woman Screen Mammo: January 01, 2021 - Exam #: [id number] Bilateral CC and MLO view(s) were taken. Technologist: Mariam Casanova, Technologist Prior study comparison: January 01, 2020, bilateral digital woman screen mammo performed at [facility]. December 26, 2018, bilateral digital woman screen mammo performed at [facility]. December 13, 2017, digital woman screen mammo performed at [facility]. FINDINGS: There are scattered fibroglandular densities. The Volpara volumetric breast density category is:B. There has been no change in the appearance of the mammogram from the prior studies. There is a mild amount of scattered fibroglandular density which is fairly symmetric. There is no interval development of dominant mass, architectural distortion, or grouped microcalcification suggestive of malignancy. 3-D tomosynthesis shows no additional findings. Assessment: BI-RADS/ACR category 1 mammogram. Negative Mammogram. Recommendation Routine screening mammogram of both breasts in 1 year (for women over age 40). This patient's [facility] Lifetime Breast Cancer Risk is estimated at 0.9 %. This mammogram was interpreted with the aid of an FDA-approved computer-aided dectection system. Electronically Signed By: Stephane Coronado MD 01/01/21 [id number]
== END ==
LOC: M WHC 13:00
PROVIDERS: ATTEND Internal Medicine
DX: Z12.31 Encounter for screening mammogram for malignant neoplasm of breast (principal)

== ENCOUNTER → 2021-03-10 | Outpatient (CLI) | payer MEDICARE | LOC: M PLAIMG 14:26 | PROVIDERS: ATTEND Internal Medicine Endocrinology, Diabetes & Metabolism | DX: M25.551 Pain in right hip (principal); M51.37 Other intervertebral disc degeneration, lumbosacral region; M51.36 Other intervertebral disc degeneration, lumbar region; M51.35 Other intervertebral disc degeneration, thoracolumbar region; M81.0 Age-related osteoporosis without current pathological fracture; R29.6 Repeated falls; Z87.81 Personal history of (healed) traumatic fracture ==

== ENCOUNTER 2021-11-27 22:52 | Emergency (ER) | payer MEDICARE ==
[~2021-11-27] VITALS: Ht 149.9 cm; Wt 49.5 kg
[2021-11-27] MEDS ORDERED: REST0.05 OP (23:24)
[2021-11-28] MEDS ORDERED: KETOROLAC 30 MG/ML 1ML VIAL IV ONE (00:25)
[2021-11-28] MEDS ORDERED: LIDOCAINE 5% (LIDODERM) PATCH TD ONE (00:40)
[2021-11-28] MEDS ORDERED: NORCO, ANEXSIA 5/325MG TABLET (HYDROcodone/ACETAMINOPHEN) PO ONE (00:40)
[2021-11-28] MEDS ORDERED: LIDO5DIS41 TD (02:24)
[2021-11-28] MEDS ORDERED: HYDR-3713 PO (02:24)
[2021-11-28] MEDS ORDERED: NORCO 5/325MG TABLET (BULK FOR ED) PO ONE (02:30)
[2021-11-28 03:00] VITALS: BP 126/60
[2021-11-28] MEDS ORDERED: **NOTE PATIENT COMMENT** MISC XX SCH (12:00)
== END 2021-11-28 03:14 | disposition home or self-care (01) ==
LOC: EDBD 22:52 → M ED 22:52
DX: S22.32XA Fracture of one rib, left side, initial encounter for closed fracture (principal); S00.83XA Contusion of other part of head, initial encounter; W10.9XXA Fall (on) (from) unspecified stairs and steps, initial encounter; Y92.009 Unspecified place in unspecified non-institutional (private) residence as the place of occurrence of the external cause; Y93.9 Activity, unspecified; Y99.9 Unspecified external cause status; M43.06 Spondylolysis, lumbar region; M25.78 Osteophyte, vertebrae; M89.9 Disorder of bone, unspecified; Z79.899 Other long term (current) drug therapy
CPT/HCPCS: 70450; 71250; 72125; 74176; 96374; 99284; J1885

== ENCOUNTER → 2022-01-28 | Outpatient (REF) | payer MEDICARE ==
[~2022-01-28] MED LIST changes: +HYDR-3713 PO; +LIDO5DIS41 TD; +REST0.05 OP
[2022-01-29 13:58] LABS: PERCENT SATURATION 27.7 % (13.2-45.0)
== END ==
LOC: M LAB REF 12:27
PROVIDERS: ATTEND Internal Medicine
DX: N18.9 Chronic kidney disease, unspecified (principal); D63.1 Anemia in chronic kidney disease

== ENCOUNTER → 2022-03-22 | Outpatient (REF) | payer MEDICARE ==
[2022-03-22 18:43] LABS: BACTERIA, URINE NONE SEEN; SQUAMOUS EPITHELIAL CELL URINE SMALL AMOUNT /hpf (SMALL AMT); TRANSITIONAL EPI CELLS, URINE MOD AMOUNT /hpf
[2022-03-22 18:44] LABS: HYALINE CAST, URINE 0-1 /lpf (0-1)
== END ==
LOC: M LAB REF 16:20
PROVIDERS: ATTEND Internal Medicine
DX: N18.32 Chronic kidney disease, stage 3b (principal)

== ENCOUNTER → 2022-04-23 | Outpatient (CLI) | payer MEDICARE | LOC: M RAD 13:29 | PROVIDERS: ATTEND Internal Medicine | DX: N18.9 Chronic kidney disease, unspecified (principal) ==

== ENCOUNTER → 2022-06-04 | Outpatient (REF) | payer MEDICARE ==
[2022-06-04 18:28] LABS: TOTAL PROTEIN 7.5 GM/DL (6.4-8.2)
[2022-06-07 14:08] LABS: ANTI DOUBLE STRAND-DNA AB 1 IU/mL (0-9); ANTINUCLEAR ANTIBODIES DIRECT Positive (Negative); RNP ANTIBODIES 0.6 AI (0.0-0.9); SJOGREN'S ANTI SS-A >8.0 AI (0.0-0.9); SJOGREN'S ANTI SS-B 0.4 AI (0.0-0.9); SMITH ANTIBODIES <0.2 AI (0.0-0.9)
== END ==
LOC: M LAB REF 17:07
PROVIDERS: ATTEND Internal Medicine Nephrology
DX: N18.31 Chronic kidney disease, stage 3a (principal)

== ENCOUNTER → 2023-08-26 | Outpatient (CLI) | payer MEDICARE | LOC: M WUC 13:49 | PROVIDERS: ATTEND Internal Medicine | DX: M47.814 Spondylosis without myelopathy or radiculopathy, thoracic region (principal); M46.1 Sacroiliitis, not elsewhere classified; M41.86 Other forms of scoliosis, lumbar region ==

== ENCOUNTER → 2023-09-01 | Outpatient (REF) | payer MEDICARE ==
[2023-09-01 18:53] LABS: CALCIUM LEVEL 9.9 MG/DL (8.3-10.6); CREATININE FOR GFR 1.38 MG/DL (0.55-1.30); GLOMERULAR FILTRATION RATE 38.8 (>32); POTASSIUM SERUM 4.4 MMOL/L (3.5-5.1)
[2023-09-01 18:54] LABS: TOTAL 25(OH) VITAMIN D 71.8 NG/ML (20.0-100.0)
== END ==
LOC: M LAB REF 17:16
PROVIDERS: ATTEND Physician Assistant
DX: E55.9 Vitamin D deficiency, unspecified (principal)